=== PATIENT | male | born 1940 | race Caucasian/White ===

== ENCOUNTER 2017-05-29 05:16 | Emergency (ER) | payer MEDICARE ==
[2017-05-29 05:26] LABS: Glucose,Whole Blood 102 mg/dL (75-99)
[2017-05-29 05:30] VITALS: RESP 16
--- NOTE | 2017-05-29 06:04 | ED ---
Neuro HPI - General Chief Complaint: Neuro Symptoms/Deficit Stated Complaint: poss stroke Time Seen by Provider: 05/29/17 05:27 Source: patient, family Mode of arrival: ambulatory Limitations: no limitations - History of Present Illness Is the patient presenting with stroke symptoms?: Yes Last Known Well Date: 05/28/17 Last Known Well Time: 23:45 -: hour(s) Initial Comments: This patient is a 77-year-old man who presents to be evaluated after he had episodes of some expressive aphasia. About 11:30 last night, the patient was speaking with his and he was having difficulty finding certain words to express his thoughts. There was no reported dysarthria. He woke this morning and had another episode and so presents here to be evaluated. Patient denied other symptoms, including no weakness or numbness of the extremities. No difficulty with swallowing. No slurring of the speech. Location: speech History of same: No Place: home Severity: mild Quality: other Improves With: none Worsens With: none On Anticoagulants: No Context: sudden onset Associated Symptoms: denies other symptoms - Related Data Home Medications: Home Medications Medication Instructions Recorded Confirmed Aspirin 81 mg PO DAILY 05/29/17 05/29/17 Atenolol 25 mg PO DAILY 05/29/17 05/29/17 Carbidopa-Levodopa ER 50-200Mg 1 tab BID 05/29/17 05/29/17 [Sinemet CR 50-200 mg] Dutasteride 0.5 mg PO DAILY 05/29/17 05/29/17 Losartan [Cozaar] 25 mg PO DAILY 05/29/17 05/29/17 Simvastatin 40 mg PO DAILY 05/29/17 05/29/17 Allergies/Adverse Reactions: Allergies Allergy/AdvReac Type Severity Reaction Status Date / Time No Known Allergies Allergy Verified 05/29/17 05:30 Review of Systems ROS Statement: Those systems with pertinent positive or pertinent negative responses have been documented in the HPI. ROS Other: All systems not noted in ROS Statement are negative. Constitutional: Denies: fever, chills Eyes: Denies: vision change ENT: Denies: hearing loss Respiratory: Denies: cough, dyspnea Cardiovascular: Denies: chest pain, palpitations, dyspnea on exertion Gastrointestinal: Denies: abdominal pain, nausea, vomiting Genitourinary: Denies: dysuria, hematuria Musculoskeletal: Denies: back pain Skin: Denies: rash Neurological: Reports: other (mild expressive aphasia). Denies: headache, weakness, numbness, paresthesias, confusion General Exam Limitations: no limitations General appearance: alert, in no apparent distress Head exam: Present: atraumatic, normocephalic, normal inspection Eye exam: Present: normal appearance, PERRL. Absent: scleral icterus, conjunctival injection ENT exam: Present: normal oropharynx Respiratory exam: Present: normal lung sounds bilaterally. Absent: respiratory distress, wheezes, rales, rhonchi, stridor Cardiovascular Exam: Present: regular rate, normal rhythm, normal heart sounds. Absent: systolic murmur, diastolic murmur, rubs, gallop GI/Abdominal exam: Present: soft. Absent: distended, tenderness, guarding, rebound, mass Extremities exam: Present: normal inspection, normal capillary refill. Absent: pedal edema, calf tenderness Back exam: Present: normal inspection. Absent: CVA tenderness (R), CVA tenderness (L) Neurological exam: Present: alert, oriented X3, CN II-XII intact. Absent: motor sensory deficit Skin exam: Present: warm, dry, intact, normal color. Absent: rash Stroke MDM - Lab Data Result diagrams: 05/29/17 05:24 05/29/17 05:24 Lab Results 05/29/17 05/29/17 05/29/17 Range/Units 05:24 05:24 05:24 WBC 7.9 (3.8-10.6) k/uL RBC 5.23 (4.30-5.90) m/uL Hgb 15.2 (13.0-17.5) gm/dL Hct 46.5 (39.0-53.0) % MCV 88.9 (80.0-100.0) fL MCH 29.0 (25.0-35.0) pg MCHC 32.6 (31.0-37.0) g/dL RDW 14.2 (11.5-15.5) % Plt Count 296 (150-450) k/uL Neutrophils % 66 % Lymphocytes % 20 % Monocytes % 7 % Eosinophils % 3 % Basophils % 1 % Neutrophils # 5.2 (1.3-7.7) k/uL Lymphocytes # 1.6 (1.0-4.8) k/uL Monocytes # 0.6 (0-1.0) k/uL Eosinophils # 0.2 (0-0.7) k/uL Basophils # 0.1 (0-0.2) k/uL PT (9.0-12.0) sec INR (<1.2) APTT (22.0-30.0) sec Sodium (137-145) mmol/L Potassium (3.5-5.1) mmol/L Chloride (98-107) mmol/L Carbon Dioxide (22-30) mmol/L Anion Gap mmol/L BUN (9-20) mg/dL Creatinine (0.66-1.25) mg/dL Est GFR (MDRD) Af Amer (>60 ml/min/1.73 sqM) Est GFR (MDRD) Non-Af (>60 ml/min/1.73 sqM) Glucose (74-99) mg/dL POC Glucose (mg/dL) 102 H (75-99) mg/dL POC Glu Flare Man ID Arft, Eduardo Calcium (8.4-10.2) mg/dL Total Bilirubin (0.2-1.3) mg/dL AST (17-59) U/L ALT (21-72) U/L Alkaline Phosphatase (38-126) U/L Total Creatine Kinase 38 L (55-170) U/L CK-MB (CK-2) 0.6 (0.0-2.4) ng/mL CK-MB (CK-2) Rel Index 1.6 Troponin I <0.012 (0.000-0.034) ng/mL Total Protein (6.3-8.2) g/dL Albumin (3.5-5.0) g/dL 05/29/17 05/29/17 Range/Units 05:24 05:24 WBC (3.8-10.6) k/uL RBC (4.30-5.90) m/uL Hgb (13.0-17.5) gm/dL Hct (39.0-53.0) % MCV (80.0-100.0) fL MCH (25.0-35.0) pg MCHC (31.0-37.0) g/dL RDW (11.5-15.5) % Plt Count (150-450) k/uL Neutrophils % % Lymphocytes % % Monocytes % % Eosinophils % % Basophils % % Neutrophils # (1.3-7.7) k/uL Lymphocytes # (1.0-4.8) k/uL Monocytes # (0-1.0) k/uL Eosinophils # (0-0.7) k/uL Basophils # (0-0.2) k/uL PT 9.8 (9.0-12.0) sec INR 1.0 (<1.2) APTT 25.1 (22.0-30.0) sec Sodium 141 (137-145) mmol/L Potassium 4.4 (3.5-5.1) mmol/L Chloride 102 (98-107) mmol/L Carbon Dioxide 30 (22-30) mmol/L Anion Gap 9 mmol/L BUN 30 H (9-20) mg/dL Creatinine 0.90 (0.66-1.25) mg/dL Est GFR (MDRD) Af Amer >60 (>60 ml/min/1.73 sqM) Est GFR (MDRD) Non-Af >60 (>60 ml/min/1.73 sqM) Glucose 108 H (74-99) mg/dL POC Glucose (mg/dL) (75-99) mg/dL POC Glu Flare Man ID Calcium 9.6 (8.4-10.2) mg/dL Total Bilirubin 1.3 (0.2-1.3) mg/dL AST 24 (17-59) U/L ALT 18 L (21-72) U/L Alkaline Phosphatase 78 (38-126) U/L Total Creatine Kinase (55-170) U/L CK-MB (CK-2) (0.0-2.4) ng/mL CK-MB (CK-2) Rel Index Troponin I (0.000-0.034) ng/mL Total Protein 6.7 (6.3-8.2) g/dL Albumin 4.1 (3.5-5.0) g/dL - Medical Decision Making This patient is 77-year-old man who presents to be evaluated for 2 episodes of expressive aphasia. The patient is at his baseline. I discussed results with the patient and offered admission, but they state that as patient's neurologist is not in the hospital, they will follow with him this morning, returning if there is any difficulty or any new symptoms. - EKG Data -: EKG Interpreted by Me EKG shows normal: sinus rhythm, axis (Normal), intervals (Normal), QRS complexes (Normal), ST-T waves (Normal) Rate: normal (Rate 73 bpm) Interpretation: normal EKG Past Medical History Past Medical History: Hyperlipidemia, Hypertension, Neurologic Disorder Additional Past Medical History / Comment(s): Parkinsons History of Any Multi-Drug Resistant Organisms: None Reported Past Surgical History: Cholecystectomy, Heart Catheterization, Heart Catheterization With Stent Past Psychological History: No Psychological Hx Reported Smoking Status: Never smoker Past Alcohol Use History: None Reported Past Drug Use History: None Reported Course Vital Signs 05/29/17 05/29/17 05:25 06:25 Temperature 97.9 F Pulse Rate 75 67 Respiratory 16 16 Rate Blood Pressure 143/78 148/86 O2 Sat by Pulse 99 100 Oximetry Disposition Clinical Impression: Expressive aphasia Disposition: HOME SELF-CARE Condition: Fair Instructions: Transient Ischemic Attack (ED) Referrals: Kingston Hoover MD [Primary Care Provider] - 1-2 days
[2017-05-29 06:19] LABS: Basophils # (A) 0.1 k/uL (0-0.2); Basophils % (A) 1 %; CH 29.9; CHCM 33.8; Eosinophils # (A) 0.2 k/uL (0-0.7); Eosinophils % (A) 3 %; HCT 46.5 % (39.0-53.0); HGB 15.2 gm/dL (13.0-17.5); Luc % (Auto) 3; Lymphocytes # (A) 1.6 k/uL (1.0-4.8); Lymphocytes % (A) 20 %; MCHC 32.6 g/dL (31.0-37.0); MCV 88.9 fL (80.0-100.0); Monocytes # (A) 0.6 k/uL (0-1.0); Monocytes % (A) 7 %; Neutrophils # (A) 5.2 k/uL (1.3-7.7); Neutrophils % (A) 66 %; RBC 5.23 m/uL (4.30-5.90); RDW 14.2 % (11.5-15.5); WBC 7.9 k/uL (3.8-10.6); WBC (Perox) 7.73
[2017-05-29 06:23] LABS: Partial Thromboplastin Time 25.1 sec (22.0-30.0); Prothrombin Time 9.8 sec (9.0-12.0)
[2017-05-29 06:36] LABS: ALT 18 U/L (21-72); AST 24 U/L (17-59); Alkaline Phosphatase 78 U/L (38-126); Anion Gap 9 mmol/L; Blood Urea Nitrogen 30 mg/dL (9-20); Calcium 9.6 mg/dL (8.4-10.2); Carbon Dioxide 30 mmol/L (22-30); Chloride 102 mmol/L (98-107); Glucose 108 mg/dL (74-99); Non-African American GFR(MDRD) >60 (>60 ml/min/1.73 sqM); Potassium 4.4 mmol/L (3.5-5.1); Sodium 141 mmol/L (137-145); Total Bilirubin 1.3 mg/dL (0.2-1.3); Total Protein 6.7 g/dL (6.3-8.2)
[2017-05-29 06:40] LABS: Creatine Kinase 38 U/L (55-170)
--- NOTE | 2017-05-29 06:45 | CT ---
EXAM: CT Head Without Intravenous Contrast. CLINICAL HISTORY: Reason: Neuro Deficits TECHNIQUE: Axial computed tomography images of the head/brain without intravenous contrast. CTDI is 57.4 mGy and DLP is 1014 mGy-cm. This CT exam was performed using one or more of the following dose reduction techniques: automated exposure control, adjustment of the mA and/or kV according to patient size, and/or use of iterative reconstruction technique. COMPARISON: No relevant prior studies available. FINDINGS: Brain: Unremarkable. No hemorrhage. No significant white matter disease. No edema. Ventricles: Unremarkable. No ventriculomegaly. Bones: No acute fracture. Sinuses: Unremarkable as visualized. No acute sinusitis. Mastoid air cells: Unremarkable as visualized. No mastoid effusion. IMPRESSION: No acute intracranial abnormality.
--- NOTE | 2017-05-29 06:49 | XR ---
EXAM: XR Chest, 1 View. CLINICAL HISTORY: Reason: altered mental status TECHNIQUE: Frontal view of the chest. COMPARISON: No relevant prior studies available. FINDINGS: Lungs: Unremarkable. No consolidation. Pleural spaces: Unremarkable. No pneumothorax. Heart: Unremarkable. No cardiomegaly. Mediastinum: Unremarkable. Bones: Unremarkable. No acute fracture. IMPRESSION: No acute findings in the chest.
[2017-05-29 06:53] LABS: Creatine Kinase MB 0.6 ng/mL (0.0-2.4); Troponin I <0.012 ng/mL (0.000-0.034)
[2017-05-29 07:30] VITALS: BP 155/90; PULSE 65; TEMP 98.1
== END 2017-05-29 07:30 | disposition home or self-care (01) ==
LOC: EC 05:16
DX: R47.01 Aphasia (principal); E78.5 Hyperlipidemia, unspecified; I10 Essential (primary) hypertension; G20 Parkinson's disease; Z79.82 Long term (current) use of aspirin; Z79.899 Other long term (current) drug therapy
CPT/HCPCS: 36415; 70450; 71010; 80053; 82550; 82553; 84484; 85025; 85610; 85730; 93005; 99284

== ENCOUNTER → 2018-03-17 | Outpatient (CLI) | payer MEDICARE | END | disposition home or self-care (01) | LOC: LABWHC1 09:06 | PROVIDERS: ATTEND Urology | DX: C61 Malignant neoplasm of prostate (principal) | CPT/HCPCS: 36415; 84153 ==

== ENCOUNTER 2020-06-17 11:39 | Inpatient (IN) | payer MEDICARE ==
[2020-06-17] MEDS ORDERED: SODIUM CHLORIDE 0.9% 1,000 ML IV STA (12:23)
[2020-06-17 13:02] LABS: Appearance,Urine Cloudy (Clear); Bacteria,Urine Rare /hpf; Bilirubin,Urine Negative (Negative); Blood,Urine Moderate (Negative); Color,Urine Yellow; Glucose,Urine (UA) Negative (Negative); Hyaline Casts,Urine 18 /lpf (0-2); Ketones,Urine Negative (Negative); Leukocyte Esterase,Urine Small (Negative); Mucus,Urine Occasional /hpf; Nitrite,Urine Negative (Negative); PH, Urine 7.5 (5.0-8.0); Protein,Urine 1+ (Negative); RBC,Urine >182 /hpf (0-5); Specific Gravity,Urine 1.024 (1.001-1.035); Squamous Epithelial Cell,Urine 3 /hpf (0-4); WBC,Urine 19 /hpf (0-5)
[2020-06-17 13:08] LABS: ALT 8 U/L (4-49); AST 33 U/L (17-59); African American GFR (CKD) >90 (>60 ml/min/1.73 sqM); Albumin 3.9 g/dL (3.5-5.0); Alkaline Phosphatase 77 U/L (38-126); Anion Gap 4 mmol/L; Blood Urea Nitrogen 35 mg/dL (9-20); Calcium 9.4 mg/dL (8.4-10.2); Carbon Dioxide 35 mmol/L (22-30); Chloride 105 mmol/L (98-107); Glucose 99 mg/dL (74-99); Magnesium 2.2 mg/dL (1.6-2.3); Non-African American GFR(CKD) >90 (>60 ml/min/1.73 sqM); Potassium 3.9 mmol/L (3.5-5.1); Sodium 144 mmol/L (137-145); Total Bilirubin 1.5 mg/dL (0.2-1.3); Total Protein 6.3 g/dL (6.3-8.2)
[2020-06-17 13:11] LABS: Partial Thromboplastin Time 23.8 sec (22.0-30.0); Prothrombin Time 10.3 sec (9.0-12.0)
[2020-06-17 13:12] LABS: Basophils % (A) 1 %; Eosinophils % (A) 1 %; HCT 40.1 % (39.0-53.0); HGB 13.5 gm/dL (13.0-17.5); Lymphocytes # (A) 0.7 k/uL (1.0-4.8); Lymphocytes % (A) 11 %; MCH 30.7 pg (25.0-35.0); MCHC 33.5 g/dL (31.0-37.0); MCV 91.5 fL (80.0-100.0); Mean Platelet Volume 6.9; Monocytes # (A) 0.4 k/uL (0-1.0); Monocytes % (A) 6 %; Neutrophils # (A) 5.1 k/uL (1.3-7.7); Neutrophils % (A) 80 %; Platelet Count 213 k/uL (150-450); RBC 4.39 m/uL (4.30-5.90); WBC 6.4 k/uL (3.8-10.6)
--- NOTE | 2020-06-17 13:31 | ED ---
General Adult HPI - General Source: EMS, RN notes reviewed Mode of arrival: EMS Limitations: altered mental status, physical limitation <Shan Ramirez - Last Filed: 06/17/20 14:39> <Kwaku Loyola - Last Filed: 06/24/20 07:16> - General Chief complaint: Weakness Stated complaint: Fall Time Seen by Provider: 06/17/20 11:59 - History of Present Illness Initial comments: 80-year-old male with a past medical history Parkinson's disease diagnosed 5 years ago, hyperlipidemia, hypertension presents to the emergency room for a chief complaint of weakness. Patient has a history of Parkinson's and does have weakness in general. However over the past few days reports that she is unable to care for him. States that he is falling and she is not able to get him up off the floor. States that she needs more help with him and thinks he may need some rehabilitation. He has not had any fevers.Patient has no other complaints at this time including shortness of breath, chest pain, abdominal pain, nausea or vomiting, headache, or visual changes. (Shan Ramirez) - Related Data Home Medications Medication Instructions Recorded Confirmed Aspirin 81 mg PO DAILY 05/29/17 06/17/20 Carbidopa-Levodopa ER 50-200Mg 1 tab PO BID 05/29/17 06/17/20 [Sinemet CR 50-200 mg] Dutasteride 0.5 mg PO HS 05/29/17 06/17/20 Losartan [Cozaar] 25 mg PO DAILY@1200 05/29/17 06/17/20 atenoloL [Atenolol] 25 mg PO HS 05/29/17 06/17/20 Docusate [Colace] 100 mg PO DAILY@1200 06/17/20 06/17/20 Donepezil [Aricept] 10 mg PO HS 06/17/20 06/17/20 QUEtiapine [SEROquel] 25 mg PO HS 06/17/20 06/17/20 Rosuvastatin [Crestor] 5 mg PO Q48H 06/17/20 06/17/20 Previous Rx's Medication Instructions Recorded QUEtiapine [SEROquel] 25 mg PO DAILY PRN tab 06/22/20 Allergies Allergy/AdvReac Type Severity Reaction Status Date / Time No Known Allergies Allergy Verified 06/17/20 13:32 Review of Systems ROS Other: All systems not noted in ROS Statement are negative. <Shan Ramirez - Last Filed: 06/17/20 14:39> ROS Other: All systems not noted in ROS Statement are negative. <NirKwaku - Last Filed: 06/24/20 07:16> ROS Statement: Those systems with pertinent positive or pertinent negative responses have been documented in the HPI. Past Medical History Past Medical History: Hyperlipidemia, Hypertension, Neurologic Disorder Additional Past Medical History / Comment(s): Parkinsons History of Any Multi-Drug Resistant Organisms: None Reported Past Surgical History: Cholecystectomy, Heart Catheterization, Heart Catheterization With Stent Past Psychological History: No Psychological Hx Reported Smoking Status: Never smoker Past Alcohol Use History: None Reported Past Drug Use History: None Reported <Shan Ramirez - Last Filed: 06/17/20 14:39> - Past Family History Mother History Unknown: Yes Family Medical History: No Reported History Additional Family Medical History / Comment(s): old age <Kwaku Loyola - Last Filed: 06/24/20 07:16> General Exam Limitations: altered mental status, physical limitation General appearance: alert, in no apparent distress Head exam: Present: atraumatic, normocephalic, normal inspection Eye exam: Present: normal appearance ENT exam: Present: normal exam, mucous membranes moist Neck exam: Present: normal inspection, full ROM. Absent: tenderness, meningismus, lymphadenopathy Respiratory exam: Present: normal lung sounds bilaterally. Absent: respiratory distress, wheezes, rales, rhonchi, stridor Cardiovascular Exam: Present: regular rate, normal rhythm GI/Abdominal exam: Present: soft, normal bowel sounds. Absent: distended, tenderness, guarding, rebound, rigid Extremities exam: Present: other (Tremors noted) Neurological exam: Present: alert <Shan Ramirez - Last Filed: 06/17/20 14:39> Course <Kwaku Loyola - Last Filed: 06/24/20 07:16> Vital Signs 06/17/20 06/17/20 06/17/20 11:49 14:56 15:24 Temperature 98.8 F 97.1 F L 98.4 F Pulse Rate 56 L 62 Pulse Rate [ 81 Left Brachial] Respiratory 22 16 18 Rate Blood Pressure 127/90 138/88 Blood Pressure 150/59 [Left Calf] O2 Sat by Pulse 96 97 96 Oximetry - Reevaluation(s) Reevaluation #1: 06/17/20 14:30 PA supervision: I did personally evaluate this patient he did present with complaints of decreased oral intake and inability to care for himself up. Is of a history of prostate cancer. Information is gathered from his as he does have dementia. Patient does have evidence of clinical dehydration. He is arousable. Heart and lungs are unremarkable on examination. He does have evidence of hematuria which does correlate with his prostate cancer. Patient will be admitted (Kwaku Loyola) Medical Decision Making - Lab Data Result diagrams: 06/17/20 12:38 06/17/20 12:38 <Shan Ramirez - Last Filed: 06/17/20 14:39> - Lab Data Result diagrams: 06/21/20 06:17 06/21/20 06:17 <Kwaku Loyola - Last Filed: 06/24/20 07:16> - Medical Decision Making CBC unremarkable. CMP does show evidence of dehydration. Patient was given fluids. He also has red blood cells in his urine with small leukocyte esterase and rare bacteria.However states the patient has prostate cancer and this is normal for him. I did discuss this case with Dr. Kiko Keenan's nurse practitioner. I discussed that would like short-term rehabilitation and then home health and he she does not want patient admitted to a long-term care facility. He does accept this patient (Shan Ramirez) - Lab Data Lab Results 06/17/20 06/17/20 06/17/20 Range/Units 12:38 12:38 12:38 WBC 6.4 (3.8-10.6) k/uL RBC 4.39 (4.30-5.90) m/uL Hgb 13.5 (13.0-17.5) gm/dL Hct 40.1 (39.0-53.0) % MCV 91.5 (80.0-100.0) fL MCH 30.7 (25.0-35.0) pg MCHC 33.5 (31.0-37.0) g/dL RDW 13.0 (11.5-15.5) % Plt Count 213 (150-450) k/uL MPV 6.9 Neutrophils % 80 % Lymphocytes % 11 % Monocytes % 6 % Eosinophils % 1 % Basophils % 1 % Neutrophils # 5.1 (1.3-7.7) k/uL Lymphocytes # 0.7 L (1.0-4.8) k/uL Monocytes # 0.4 (0-1.0) k/uL Eosinophils # 0.0 (0-0.7) k/uL Basophils # 0.0 (0-0.2) k/uL PT 10.3 (9.0-12.0) sec INR 1.0 (<1.2) APTT 23.8 (22.0-30.0) sec Sodium (137-145) mmol/L Potassium (3.5-5.1) mmol/L Chloride (98-107) mmol/L Carbon Dioxide (22-30) mmol/L Anion Gap mmol/L BUN (9-20) mg/dL Creatinine (0.66-1.25) mg/dL Est GFR (CKD-EPI)AfAm (>60 ml/min/1.73 sqM) Est GFR (CKD-EPI)NonAf (>60 ml/min/1.73 sqM) Glucose (74-99) mg/dL Plasma Lactic Acid Zenon (0.7-2.0) mmol/L Calcium (8.4-10.2) mg/dL Magnesium (1.6-2.3) mg/dL Total Bilirubin (0.2-1.3) mg/dL AST (17-59) U/L ALT (4-49) U/L Alkaline Phosphatase (38-126) U/L Troponin I (0.000-0.034) ng/mL Total Protein (6.3-8.2) g/dL Albumin (3.5-5.0) g/dL Urine Color Yellow Urine Appearance Cloudy (Clear) Urine pH 7.5 (5.0-8.0) Ur Specific Tibbie 1.024 (1.001-1.035) Urine Protein 1+ H (Negative) Urine Glucose (UA) Negative (Negative) Urine Ketones Negative (Negative) Urine Blood Moderate H (Negative) Urine Nitrite Negative (Negative) Urine Bilirubin Negative (Negative) Urine Urobilinogen 2.0 (<2.0) mg/dL Ur Leukocyte Esterase Small H (Negative) Urine RBC >182 H (0-5) /hpf Urine WBC 19 H (0-5) /hpf Urine WBC Clumps Occasional H (None) /hpf Ur Squamous Epith Cells 3 (0-4) /hpf Urine Bacteria Rare H (None) /hpf Hyaline Casts 18 H (0-2) /lpf Urine Mucus Occasional H (None) /hpf Coronavirus (PCR) (Not Detectd) 06/17/20 06/17/20 06/17/20 Range/Units 12:38 12:38 12:38 WBC (3.8-10.6) k/uL RBC (4.30-5.90) m/uL Hgb (13.0-17.5) gm/dL Hct (39.0-53.0) % MCV (80.0-100.0) fL MCH (25.0-35.0) pg MCHC (31.0-37.0) g/dL RDW (11.5-15.5) % Plt Count (150-450) k/uL MPV Neutrophils % % Lymphocytes % % Monocytes % % Eosinophils % % Basophils % % Neutrophils # (1.3-7.7) k/uL Lymphocytes # (1.0-4.8) k/uL Monocytes # (0-1.0) k/uL Eosinophils # (0-0.7) k/uL Basophils # (0-0.2) k/uL PT (9.0-12.0) sec INR (<1.2) APTT (22.0-30.0) sec Sodium 144 (137-145) mmol/L Potassium 3.9 (3.5-5.1) mmol/L Chloride 105 (98-107) mmol/L Carbon Dioxide 35 H (22-30) mmol/L Anion Gap 4 mmol/L BUN 35 H (9-20) mg/dL Creatinine 0.69 (0.66-1.25) mg/dL Est GFR (CKD-EPI)AfAm >90 (>60 ml/min/1.73 sqM) Est GFR (CKD-EPI)NonAf >90 (>60 ml/min/1.73 sqM) Glucose 99 (74-99) mg/dL Plasma Lactic Acid Zenon 0.9 (0.7-2.0) mmol/L Calcium 9.4 (8.4-10.2) mg/dL Magnesium 2.2 (1.6-2.3) mg/dL Total Bilirubin 1.5 H (0.2-1.3) mg/dL AST 33 (17-59) U/L ALT 8 (4-49) U/L Alkaline Phosphatase 77 (38-126) U/L Troponin I <0.012 (0.000-0.034) ng/mL Total Protein 6.3 (6.3-8.2) g/dL Albumin 3.9 (3.5-5.0) g/dL Urine Color Urine Appearance (Clear) Urine pH (5.0-8.0) Ur Specific Tibbie (1.001-1.035) Urine Protein (Negative) Urine Glucose (UA) (Negative) Urine Ketones (Negative) Urine Blood (Negative) Urine Nitrite (Negative) Urine Bilirubin (Negative) Urine Urobilinogen (<2.0) mg/dL Ur Leukocyte Esterase (Negative) Urine RBC (0-5) /hpf Urine WBC (0-5) /hpf Urine WBC Clumps (None) /hpf Ur Squamous Epith Cells (0-4) /hpf Urine Bacteria (None) /hpf Hyaline Casts (0-2) /lpf Urine Mucus (None) /hpf Coronavirus (PCR) (Not Detectd) 06/17/20 Range/Units 12:38 WBC (3.8-10.6) k/uL RBC (4.30-5.90) m/uL Hgb (13.0-17.5) gm/dL Hct (39.0-53.0) % MCV (80.0-100.0) fL MCH (25.0-35.0) pg MCHC (31.0-37.0) g/dL RDW (11.5-15.5) % Plt Count (150-450) k/uL MPV Neutrophils % % Lymphocytes % % Monocytes % % Eosinophils % % Basophils % % Neutrophils # (1.3-7.7) k/uL Lymphocytes # (1.0-4.8) k/uL Monocytes # (0-1.0) k/uL Eosinophils # (0-0.7) k/uL Basophils # (0-0.2) k/uL PT (9.0-12.0) sec INR (<1.2) APTT (22.0-30.0) sec Sodium (137-145) mmol/L Potassium (3.5-5.1) mmol/L Chloride (98-107) mmol/L Carbon Dioxide (22-30) mmol/L Anion Gap mmol/L BUN (9-20) mg/dL Creatinine (0.66-1.25) mg/dL Est GFR (CKD-EPI)AfAm (>60 ml/min/1.73 sqM) Est GFR (CKD-EPI)NonAf (>60 ml/min/1.73 sqM) Glucose (74-99) mg/dL Plasma Lactic Acid Zenon (0.7-2.0) mmol/L Calcium (8.4-10.2) mg/dL Magnesium (1.6-2.3) mg/dL Total Bilirubin (0.2-1.3) mg/dL AST (17-59) U/L ALT (4-49) U/L Alkaline Phosphatase (38-126) U/L Troponin I (0.000-0.034) ng/mL Total Protein (6.3-8.2) g/dL Albumin (3.5-5.0) g/dL Urine Color Urine Appearance (Clear) Urine pH (5.0-8.0) Ur Specific Tibbie (1.001-1.035) Urine Protein (Negative) Urine Glucose (UA) (Negative) Urine Ketones (Negative) Urine Blood (Negative) Urine Nitrite (Negative) Urine Bilirubin (Negative) Urine Urobilinogen (<2.0) mg/dL Ur Leukocyte Esterase (Negative) Urine RBC (0-5) /hpf Urine WBC (0-5) /hpf Urine WBC Clumps (None) /hpf Ur Squamous Epith Cells (0-4) /hpf Urine Bacteria (None) /hpf Hyaline Casts (0-2) /lpf Urine Mucus (None) /hpf Coronavirus (PCR) Not Detected (Not Detectd) Disposition Time of Disposition: 14:40 <Shan Ramirez - Last Filed: 06/17/20 14:39> <Kwaku Loyola - Last Filed: 06/24/20 07:16> Clinical Impression: Weakness, Dementia, Dehydration, Failure to thrive Disposition: ADMITTED IP TO THIS [facility] Condition: Stable
--- NOTE | 2020-06-17 13:38 | XR ---
EXAMINATION TYPE: XR chest 2V DATE OF EXAM: 06/17/2020 COMPARISON: 05/29/2017 INDICATION: Weakness history of dementia TECHNIQUE: Frontal and lateral views of the chest are obtained. FINDINGS: The heart size is normal. The pulmonary vasculature is normal. The lungs are clear. There is some hyperinflation present likely on the basis of emphysematous eaton e. No suspicious infiltrates are evident. IMPRESSION: 1. No acute pulmonary process.
[2020-06-17] MEDS ORDERED: NALOXONE 0.4 MG/ML 1 ML VIAL IV PRN (14:41)
[2020-06-17] MEDS ORDERED: NON FORMULARY DRUG (Rosuvastatin 10 MG Tablet) PO SCH (14:45)
[2020-06-17] MEDS: SODIUM CHLORIDE 0.9% 1,000 ML IV SCH (15:13)
[2020-06-17] MEDS ORDERED: LORazepam 2 MG/ML INJ ONE (15:55)
[2020-06-17] MEDS: LORazepam 2 MG/ML INJ IV PRN ×2 (16:29→18:11)
[2020-06-17] MEDS ORDERED: LORazepam 2 MG/ML INJ IV PRN (16:34)
--- NOTE | 2020-06-17 19:38 | P.HPIM ---
History of Present Illness H&P Date: 06/17/20 Chief Complaint: Weakness failure to thrive This well known sitting 10-year-old male patient was brought to the emergency department for the chief complaint of weakness and startling. He has a history of Parkinson's disease diagnosed approximately 5 years ago in the last 2 years he also developed Parkinsonian dementia and is taking care of at home by his . Yesterday 06/16/2020, his states that he had a fall without sustaining major injury she denies he hit his head hit his ribs or complains of pain. Last evening, he got on the floor and could not get back up. 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 She has noticed flailing increasing since yesterday she states he did eat yesterday and had no other behaviors she denies any fever or any diarrhea she does state he has a history of prostate cancer monitored by urology with times of blood found in his disposable brief but no more than normal or change in order of urine. His feels that he may need a workup to determine the weakness change in behavior and possibly benefit from short-term rehabilitation in a care home setting. She is aware that with the Parkinson's and dementia and weakness will continue but does feel that even with a small amount of physical therapy this may help with the management of his care at home for now. Due to the change in behavior and weakness, UA culture was sent per emergency room, CT without contrast of head ordered to rule out acute n eurological cause. Review of Systems Constitutional: Reports fatigue, Reports weakness, Reports weight loss Genitourinary: Reports incontinence Musculoskeletal: Reports frequent falls, Reports gait dysfunction, Reports muscle weakness Integumentary: Reports wounds (Coccyx) Neurological: Reports gait dysfunction, Reports memory loss, Reports tremors, Reports weakness Psychiatric: Reports confusion, Reports memory loss Past Medical History Past Medical History: Hyperlipidemia, Hypertension, Neurologic Disorder Additional Past Medical History / Comment(s): Parkinsons History of Any Multi-Drug Resistant Organisms: None Reported Past Surgical History: Cholecystectomy, Heart Catheterization, Heart Catheterization With Stent Past Anesthesia/Blood Transfusion Reactions: No Reported Reaction Date of Last Stent Placement:: unknown Past Psychological History: No Psychological Hx Reported Smoking Status: Never smoker Past Alcohol Use History: None Reported Past Drug Use History: None Reported - Past Family History Mother History Unknown: Yes Family Medical History: No Reported History Additional Family Medical History / Comment(s): old age Medications and Allergies Home Medications Medication Instructions Recorded Confirmed Type Aspirin 81 mg PO DAILY 05/29/17 06/17/20 History Carbidopa-Levodopa ER 50-200Mg 1 tab PO BID 05/29/17 06/17/20 History [Sinemet CR 50-200 mg] Dutasteride 0.5 mg PO HS 05/29/17 06/17/20 History Losartan [Cozaar] 25 mg PO DAILY@1200 05/29/17 06/17/20 History atenoloL [Atenolol] 25 mg PO HS 05/29/17 06/17/20 History Docusate [Colace] 100 mg PO DAILY@1200 06/17/20 06/17/20 History Donepezil [Aricept] 10 mg PO HS 06/17/20 06/17/20 History QUEtiapine [SEROquel] 25 mg PO HS 06/17/20 06/17/20 History Rosuvastatin [Crestor] 5 mg PO Q48H 06/17/20 06/17/20 History Allergies Allergy/AdvReac Type Severity Reaction Status Date / Time No Known Allergies Allergy Verified 06/17/20 13:32 Physical Exam Vitals: Vital Signs Temp Pulse Pulse Resp BP BP Pulse Ox 06/17/20 16:35 16 06/17/20 16:31 97.1 F L 79 16 150/59 96 06/17/20 15:24 98.4 F 62 18 138/88 96 06/17/20 14:56 97.1 F L 81 16 150/59 97 06/17/20 11:49 98.8 F 56 L 22 127/90 96 Intake and Output 06/17/20 06/17/20 06/17/20 06:59 14:59 22:59 Other: # Voids 1 Weight 61.235 kg - Constitutional General appearance: mild distress, thin - Neck Thyroid: bilateral: normal size - Respiratory Respiratory: bilateral: CTA, diminished - Cardiovascular Rhythm: regular - Gastrointestinal General gastrointestinal: normal bowel sounds, soft - Neurologic Neurologic: focal deficits - Musculoskeletal Musculoskeletal: generalized weakness Results CBC & Chem 7: 06/17/20 12:38 06/17/20 12:38 Labs: Abnormal Lab Results - Last 24 Hours (Table) 06/17/20 06/17/20 06/17/20 Range/Units 12:38 12:38 12:38 Lymphocytes # 0.7 L (1.0-4.8) k/uL Carbon Dioxide 35 H (22-30) mmol/L BUN 35 H (9-20) mg/dL Total Bilirubin 1.5 H (0.2-1.3) mg/dL Urine Protein 1+ H (Negative) Urine Blood Moderate H (Negative) Ur Leukocyte Esterase Small H (Negative) Urine RBC >182 H (0-5) /hpf Urine WBC 19 H (0-5) /hpf Urine WBC Clumps Occasional H (None) /hpf Urine Bacteria Rare H (None) /hpf Hyaline Casts 18 H (0-2) /lpf Urine Mucus Occasional H (None) /hpf Abdominal x-ray: report reviewed Thrombosis Risk Factor Assmnt - Choose All That Apply Any of the Below Risk Factors Present?: No Other Risk Factors: No Other congenital or acquired thrombophilia - If yes, enter type in comment: No Thrombosis Risk Factor Assessment Level: Very Low Risk Assessment and Plan Assessment: Weakness Gait dysfunction Parkinson's disease Parkinsonian dementia History of prostate cancer followed by urology History of hyperlipidemia History of hypertension Failure to thrive Stage II pressure wound coccyx (1) Weakness Narrative/Plan: Rule out cause for her weakness Physical therapy consider short-term rehabilitation at care home facility Current Visit: Yes Status: Acute Code(s): R53.1 - WEAKNESS SNOMED Code(s): 52206209 (2) Dementia Narrative/Plan: Neurology consult Current Visit: Yes Status: Acute Code(s): F03.90 - UNSPECIFIED DEMENTIA WITHOUT BEHAVIORAL DISTURBANCE SNOMED Code(s): 65503028 Plan: Continue medications as prescribed Neurology consult for recommendations and treatment plans Wound care consultation for recommendations of coccyx stage II pressure wound Continue PT OT consultation for evaluation and treatment Time with Patient: Greater than 30 (Discussed plan of care at the bedside with patient's regarding history and pertinent information discuss long-term care goals)
[2020-06-17] MEDS: DONEPEZIL 10 MG TAB PO SCH (20:00)
[2020-06-17] MEDS: CARBIDOPA-LEVODOPA ER 50-200MG 1 EACH TABLET.ER PO SCH (20:01)
[2020-06-17] MEDS: atenoloL 25 MG TAB PO SCH (20:07)
[2020-06-17] MEDS: ATORVASTATIN 10 MG TAB PO SCH (20:07)
[2020-06-17] MEDS: FINASTERIDE 5 MG TAB PO SCH (20:08)
[2020-06-17] MEDS: QUEtiapine 25 MG TAB PO SCH (20:08)
[2020-06-18] MEDS: SODIUM CHLORIDE 0.9% 1,000 ML IV SCH ×2 (04:20→11:49)
[2020-06-18 06:12] LABS: Basophils # (A) 0.1 k/uL (0-0.2); Basophils % (A) 1 %; Eosinophils # (A) 0.2 k/uL (0-0.7); Eosinophils % (A) 3 %; HCT 37.6 % (39.0-53.0); HGB 13.1 gm/dL (13.0-17.5); Lymphocytes # (A) 0.8 k/uL (1.0-4.8); Lymphocytes % (A) 14 %; MCH 32.1 pg (25.0-35.0); MCHC 34.9 g/dL (31.0-37.0); MCV 91.9 fL (80.0-100.0); Mean Platelet Volume 7.1; Monocytes # (A) 0.5 k/uL (0-1.0); Monocytes % (A) 9 %; Neutrophils # (A) 4.3 k/uL (1.3-7.7); Neutrophils % (A) 71 %; Platelet Count 188 k/uL (150-450); RBC 4.09 m/uL (4.30-5.90); RDW 12.5 % (11.5-15.5); WBC 6.1 k/uL (3.8-10.6)
[2020-06-18 06:21] LABS: ALT 11 U/L (4-49); AST 36 U/L (17-59); African American GFR (CKD) >90 (>60 ml/min/1.73 sqM); Albumin 3.5 g/dL (3.5-5.0); Albumin/Globulin Ratio 1.5; Alkaline Phosphatase 70 U/L (38-126); Anion Gap 4 mmol/L; Blood Urea Nitrogen 23 mg/dL (9-20); Calcium 8.8 mg/dL (8.4-10.2); Carbon Dioxide 29 mmol/L (22-30); Chloride 107 mmol/L (98-107); Globulin 2.3 g/dL; Glucose 70 mg/dL (74-99); Non-African American GFR(CKD) >90 (>60 ml/min/1.73 sqM); Sodium 140 mmol/L (137-145); Total Protein 5.8 g/dL (6.3-8.2)
--- NOTE | 2020-06-18 08:44 | CT ---
EXAMINATION TYPE: CT brain wo con DATE OF EXAM: 06/18/2020 COMPARISON: 05/29/2017 INDICATION: Altered mental status DLP: 1046.8 mGycm, Automated exposure control for dose reduction was used. CONTRAST: None CT of the brain is performed utilizing 3 mm thick sections through the posterior fossa and 3 mm thick sections through the remaining calvarium. Study is performed within 24 hours of arrival to the hosp [facility]. No abnormal hyperdensity is present to suggest an acute intracranial hemorrhage. No mass lesion is evident. No acute infarcts are evident. Ventricles and sulci are appropriate for the patient age. There is mild mucosal thickening within right ethmoid air cells. Remaining paranasal sinuses mastoid air cells within the [id number] are clear. IMPRESSIONS: 1. No suspicious acute intracranial process
--- NOTE | 2020-06-18 09:06 | P.PN ---
Subjective Progress Note Date: 06/18/20 Principal diagnosis: Weakness Gait dysfunction Parkinson's disease Parkinsonian dementia History of prostate cancer followed by urology History of hyperlipidemia History of hypertension Failure to thrive Stage II pressure wound coccyx This 80 male is resting comfortably in bed at this time, he does arouse to verbal command with light touch, he had his CT scan of his head this morning and results reviewed, he has neurology consult for altered mental status change as his behaviors are not at his baseline and he has a wound care consultation for a stage II pressure wound on his coccyx, he is in no acute distress and is not exhibiting behavioral disturbances at this time. Objective - Vital Signs Vital signs: Vital Signs Temp 97.5 F L 06/18/20 07:53 Pulse 59 L 06/18/20 07:53 Resp 20 06/18/20 07:53 BP 142/69 06/18/20 07:53 Pulse Ox 96 06/18/20 07:53 Intake & Output 06/17/20 06/18/20 06/18/20 18:59 06:59 18:59 Weight 61.235 kg Other: # Voids 1 1 - Constitutional General appearance: Present: no acute distress, thin - Cardiovascular Rhythm: regular - Gastrointestinal General gastrointestinal: Present: normal bowel sounds - Neurologic Neurologic: Present: focal deficits - Musculoskeletal Musculoskeletal: Present: generalized weakness - Labs CBC & Chem 7: 06/18/20 06:00 06/18/20 06:00 Labs: Abnormal Lab Results - Last 24 Hours (Table) 06/17/20 06/17/20 06/17/20 Range/Units 12:38 12:38 12:38 RBC (4.30-5.90) m/uL Hct (39.0-53.0) % Lymphocytes # 0.7 L (1.0-4.8) k/uL Carbon Dioxide 35 H (22-30) mmol/L BUN 35 H (9-20) mg/dL Creatinine (0.66-1.25) mg/dL Glucose (74-99) mg/dL Total Bilirubin 1.5 H (0.2-1.3) mg/dL Total Protein (6.3-8.2) g/dL Urine Protein 1+ H (Negative) Urine Blood Moderate H (Negative) Ur Leukocyte Esterase Small H (Negative) Urine RBC >182 H (0-5) /hpf Urine WBC 19 H (0-5) /hpf Urine WBC Clumps Occasional H (None) /hpf Urine Bacteria Rare H (None) /hpf Hyaline Casts 18 H (0-2) /lpf Urine Mucus Occasional H (None) /hpf 06/18/20 06/18/20 Range/Units 06:00 06:00 RBC 4.09 L (4.30-5.90) m/uL Hct 37.6 L (39.0-53.0) % Lymphocytes # 0.8 L (1.0-4.8) k/uL Carbon Dioxide (22-30) mmol/L BUN 23 H (9-20) mg/dL Creatinine 0.55 L (0.66-1.25) mg/dL Glucose 70 L (74-99) mg/dL Total Bilirubin 2.0 H (0.2-1.3) mg/dL Total Protein 5.8 L (6.3-8.2) g/dL Urine Protein (Negative) Urine Blood (Negative) Ur Leukocyte Esterase (Negative) Urine RBC (0-5) /hpf Urine WBC (0-5) /hpf Urine WBC Clumps (None) /hpf Urine Bacteria (None) /hpf Hyaline Casts (0-2) /lpf Urine Mucus (None) /hpf Microbiology - Last 24 Hours (Table) 06/17/20 12:38 Urine Culture - Preliminary Urine,Voided - Imaging and Cardiology CT Scan - head: report reviewed Assessment and Plan Assessment: Weakness Gait dysfunction Parkinson's disease Parkinsonian dementia History of prostate cancer followed by urology History of hyperlipidemia History of hypertension Failure to thrive Stage II pressure wound coccyx (1) Weakness Narrative/Plan: Rule out cause for her weakness Physical therapy consider short-term rehabilitation at intermediate facility Current Visit: Yes Status: Acute Code(s): R53.1 - WEAKNESS SNOMED Code(s): 17517699 (2) Dementia Narrative/Plan: Neurology consult Current Visit: Yes Status: Acute Code(s): F03.90 - UNSPECIFIED DEMENTIA WITHOUT BEHAVIORAL DISTURBANCE SNOMED Code(s): 39968778 Plan: Continue medications as prescribed Continue Neurology consult for recommendations and treatment plans Continue Wound care consultation for recommendations of coccyx stage II pressure wound Continue PT OT consultation for evaluation and treatment
[2020-06-18] MEDS: ASPIRIN 81 MG PO SCH (09:22)
[2020-06-18] MEDS: CARBIDOPA-LEVODOPA ER 50-200MG 1 EACH TABLET.ER PO SCH ×2 (09:23→19:44)
--- NOTE | 2020-06-18 10:42 | P.CONS ---
History of Present Illness - Reason for Consult Consult date: 06/18/20 wound care - History of Present Illness This is a 80-year-old gentleman who is being seen by the wound care center for a nonhealing ulceration to the left gluteus. Patient is unable to answer questions due to mental status. He is alert to self. Information was obtained from nurse and chart. patient lives at home with his . History of hyperlipidemia, hypertension, dementia, and Parkinson's. Review of Systems ROS unobtainable: due to mental status Past Medical History Past Medical History: Hyperlipidemia, Hypertension, Neurologic Disorder Additional Past Medical History / Comment(s): Parkinsons History of Any Multi-Drug Resistant Organisms: None Reported Past Surgical History: Cholecystectomy, Heart Catheterization, Heart Catheterization With Stent Past Anesthesia/Blood Transfusion Reactions: No Reported Reaction Date of Last Stent Placement:: unknown Past Psychological History: No Psychological Hx Reported Smoking Status: Never smoker Past Alcohol Use History: None Reported Past Drug Use History: None Reported - Past Family History Mother History Unknown: Yes Family Medical History: No Reported History Additional Family Medical History / Comment(s): old age Medications and Allergies Home Medications Medication Instructions Recorded Confirmed Type Aspirin 81 mg PO DAILY 05/29/17 06/17/20 History Carbidopa-Levodopa ER 50-200Mg 1 tab PO BID 05/29/17 06/17/20 History [Sinemet CR 50-200 mg] Dutasteride 0.5 mg PO HS 05/29/17 06/17/20 History Losartan [Cozaar] 25 mg PO DAILY@1200 05/29/17 06/17/20 History atenoloL [Atenolol] 25 mg PO HS 05/29/17 06/17/20 History Docusate [Colace] 100 mg PO DAILY@1200 06/17/20 06/17/20 History Donepezil [Aricept] 10 mg PO HS 06/17/20 06/17/20 History QUEtiapine [SEROquel] 25 mg PO HS 06/17/20 06/17/20 History Rosuvastatin [Crestor] 5 mg PO Q48H 06/17/20 06/17/20 History Allergies Allergy/AdvReac Type Severity Reaction Status Date / Time No Known Allergies Allergy Verified 06/17/20 13:32 Physical Exam Vitals: Vital Signs Temp Pulse Pulse Pulse Resp BP BP 06/18/20 07:53 97.5 F L 59 L 20 142/69 06/18/20 02:20 97.6 F 51 L 18 130/51 06/17/20 20:00 98.0 F 56 L 18 107/77 06/17/20 16:35 16 06/17/20 16:31 97.1 F L 79 16 06/17/20 15:24 98.4 F 62 18 138/88 06/17/20 14:56 97.1 F L 81 16 06/17/20 11:49 98.8 F 56 L 22 127/90 BP Pulse Ox 06/18/20 07:53 96 06/18/20 02:20 97 06/17/20 20:00 96 06/17/20 16:35 06/17/20 16:31 150/59 96 06/17/20 15:24 96 06/17/20 14:56 150/59 97 06/17/20 11:49 96 Intake and Output 06/17/20 06/18/20 06/18/20 22:59 06:59 14:59 Other: # Voids 1 1 Physical exam: General Appearance: Alert, cooperative, no distress, appears stated age. Skin: full thickness stage II pressure ulcer left gluteus, with fat layer exposure, measuring approximately 0.6 x 1.5 x 0.2 wound edges are tested wound base, no tunneling or undermining noted, periwound shows excoriation and mace ration all other Skin color pale, texture, tugor decrease, no rashes or lesions. Neurologic: Alert oriented x3 Results CBC & Chem 7: 06/18/20 06:00 06/18/20 06:00 Labs: Abnormal Lab Results - Last 24 Hours (Table) 06/17/20 06/17/20 06/17/20 Range/Units 12:38 12:38 12:38 RBC (4.30-5.90) m/uL Hct (39.0-53.0) % Lymphocytes # 0.7 L (1.0-4.8) k/uL Carbon Dioxide 35 H (22-30) mmol/L BUN 35 H (9-20) mg/dL Creatinine (0.66-1.25) mg/dL Glucose (74-99) mg/dL Total Bilirubin 1.5 H (0.2-1.3) mg/dL Total Protein (6.3-8.2) g/dL Urine Protein 1+ H (Negative) Urine Blood Moderate H (Negative) Ur Leukocyte Esterase Small H (Negative) Urine RBC >182 H (0-5) /hpf Urine WBC 19 H (0-5) /hpf Urine WBC Clumps Occasional H (None) /hpf Urine Bacteria Rare H (None) /hpf Hyaline Casts 18 H (0-2) /lpf Urine Mucus Occasional H (None) /hpf 06/18/20 06/18/20 Range/Units 06:00 06:00 RBC 4.09 L (4.30-5.90) m/uL Hct 37.6 L (39.0-53.0) % Lymphocytes # 0.8 L (1.0-4.8) k/uL Carbon Dioxide (22-30) mmol/L BUN 23 H (9-20) mg/dL Creatinine 0.55 L (0.66-1.25) mg/dL Glucose 70 L (74-99) mg/dL Total Bilirubin 2.0 H (0.2-1.3) mg/dL Total Protein 5.8 L (6.3-8.2) g/dL Urine Protein (Negative) Urine Blood (Negative) Ur Leukocyte Esterase (Negative) Urine RBC (0-5) /hpf Urine WBC (0-5) /hpf Urine WBC Clumps (None) /hpf Urine Bacteria (None) /hpf Hyaline Casts (0-2) /lpf Urine Mucus (None) /hpf Microbiology - Last 24 Hours (Table) 06/17/20 12:38 Urine Culture - Preliminary Urine,Voided Assessment and Plan (1) Pressure ulcer of sacral region, stage 2 Current Visit: Yes Status: Acute Code(s): L89.152 - PRESSURE ULCER OF SACRAL REGION, STAGE 2 SNOMED Code(s): 820324982 Plan: apply honey alginate, saline moistened gauze, border foam. Change Monday. May use zinc barrier cream to that. Area to help with further skin breakdown. Consult nutrition, assess the surface of the rhythm for the appropriate surface. Utilize a mattress overlay. Turn patient every 2 hours. Patient may benefit from continued outpatient wound care. thank you for the consultation any questions please contact the wound care center. DNP note has been reviewed and discussed with Dr. Boland and the impression and plan of care has been directed as dictated.
[2020-06-18 11:18] LABS: Glucose,Whole Blood 114 mg/dL (75-99)
[2020-06-18] MEDS: DOCUSATE 100 MG CAP PO SCH (11:37)
[2020-06-18] MEDS: LOSARTAN 25 MG TAB PO SCH (11:37)
--- NOTE | 2020-06-18 12:12 | P.CNNES ---
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 The history was obtained from the patient's was at bedside. On 06/16/2020 the patient had a fall without any major injury, denies any head trauma or patient complaining of any pain. After the fall the patient could not get up. On 06/17/2020 the patient was sliding out of the chair and coming down to the floor and unable to get up. She stated that over the last couple days patient has been having more frequent falls but denies hitting his head or losing consciousness or any jerk in of any his extremities with these episodes. She said that he always had falls or would crawl on the floor but with command that he would get up but with these episodes one the he was asked to get up he would not. She also stated that over the last few days all his extremities were flailing in the air which is new. She also felt like he somewhat more confused than his baseline in the last couple days. He usually walks unassisted but shuffles at home. A cortisone he follows up with Dr. Bahena managing his Parkinson's and the last time he was seen by Dr. Jimenez was about 6 months ago. And she stated that he hasn't followed up appointment with his neurologist and the end of this month or the beginning of next month. He stated the patient has a cervical dystonia on the right and in the past there was a discussion of getting injections and Botox injection but was decided not to give him in jections. Today the patient feels like he is much better compared to yesterday. Per patient she stated that the patient is able to feed himself but he needs the assistance going to the bathroom. He is incontinent which is as chronic issue. Regarding mentation, sometimes he is aware of himself and sometimes he might know his and sometimes not. Otherwise he has more remote memory is intact. Patient is on Sinemet 50/200 mg 1 tablet twice a day. Patient is also on Aricept 10 mg daily as well as Seroquel 25 mg daily. His medication has been changed according to the and the last 2 years. Work-up in the hospital consisted of: Initial vitals: Blood pressure of 127/90, heart rate of 56, respiratory of 22, temperature of 98.8 Fahrenheit axillary pulse ox of 96% at room air CT of the head is reported as no suspicious acute intracranial process. EKG was reported as normal sinus rhythm. Nonspecific ST abnormality. Abnormal EKG. Chest x-ray was reported as no acute pulmonary process. Analysis shows nitrate was negative, leukocyte esterases small, urine white blood cell was 19, urine bacteria was rare. Review of Systems Review of systems Limited by the per positive and negative as per HPI. Past Medical History Past Medical History: Hyperlipidemia, Hypertension, Neurologic Disorder Additional Past Medical History / Comment(s): Parkinsons History of Any Multi-Drug Resistant Organisms: None Reported Past Surgical History: Cholecystectomy, Heart Catheterization, Heart Catheterization With Stent Past Anesthesia/Blood Transfusion Reactions: No Reported Reaction Date of Last Stent Placement:: unknown Past Psychological History: No Psychological Hx Reported Smoking Status: Never smoker Past Alcohol Use History: None Reported Past Drug Use History: None Reported - Past Family History Mother History Unknown: Yes Family Medical History: No Reported History Additional Family Medical History / Comment(s): old age Medications and Allergies Home Medications Medication Instructions Recorded Confirmed Type Aspirin 81 mg PO DAILY 05/29/17 06/17/20 History Carbidopa-Levodopa ER 50-200Mg 1 tab PO BID 05/29/17 06/17/20 History [Sinemet CR 50-200 mg] Dutasteride 0.5 mg PO HS 05/29/17 06/17/20 History Losartan [Cozaar] 25 mg PO DAILY@1200 05/29/17 06/17/20 History atenoloL [Atenolol] 25 mg PO HS 05/29/17 06/17/20 History Docusate [Colace] 100 mg PO DAILY@1200 06/17/20 06/17/20 History Donepezil [Aricept] 10 mg PO HS 06/17/20 06/17/20 History QUEtiapine [SEROquel] 25 mg PO HS 06/17/20 06/17/20 History Rosuvastatin [Crestor] 5 mg PO Q48H 06/17/20 06/17/20 History Allergies Allergy/AdvReac Type Severity Reaction Status Date / Time No Known Allergies Allergy Verified 06/17/20 13:32 Physical Examination - Vital Signs Vital Signs: Vital Signs Temp Pulse Pulse Pulse Resp BP BP 06/18/20 07:53 97.5 F L 59 L 20 142/69 06/18/20 02:20 97.6 F 51 L 18 130/51 06/17/20 20:00 98.0 F 56 L 18 107/77 06/17/20 16:35 16 06/17/20 16:31 97.1 F L 79 16 06/17/20 15:24 98.4 F 62 18 138/88 06/17/20 14:56 97.1 F L 81 16 06/17/20 11:49 98.8 F 56 L 22 127/90 BP Pulse Ox 06/18/20 07:53 96 06/18/20 02:20 97 06/17/20 20:00 96 06/17/20 16:35 06/17/20 16:31 150/59 96 06/17/20 15:24 96 06/17/20 14:56 150/59 97 06/17/20 11:49 96 Intake and Output 06/17/20 06/18/20 06/18/20 22:59 06:59 14:59 Other: # Voids 1 1 GENERAL: The patient is lying in bed and is not in acute distress. CHEST: The heart rate is regular rate rhythm. No murmurs to auscultation. LUNG: Clear to auscultation bilaterally no wheezing noted throughout. Not labored breathing. ABDOMEN/GI: Bowel sounds present in all 4 quadrants. No tenderness to palpation throughout. NEUROLOGICAL: Limited because of his condition. Higher mental function: The patient is awake oriented to self but no place or time. He stated it was 1992 for year. He was not able to name his or name objects upon showing him. Cranial nerves: The pupils are round, equal and reactive to light. Visual hughes could not assess because of his condition. Extraocular movement : Patient is able to track through the room and no nysgamus note. Could not assess facial sensation because of his condition. No facial weakness noted. Could not assess rest of cranial nerves because of his condition. Motor: Gait could not assess becuase of his condition. The strength is able to move all extremities above gravity. I felt he has increased tone throughout all extremities. . I felt the patient has some disconjugate movement of the lower extremities Cerebellum: Could not assess Sensation: Could not assess. Reflexes (right/left): 2+ throughout. Plantars are downgoing bilaterally. Results Liver function tests is AST of 33 and ALT of 8. Aguila virus PCR is nondetected TSH on 2019 was 1.470 which is normal. - Laboratory Findings CBC and BMP: 06/18/20 06:00 06/18/20 06:00 Abnormal Lab Findings: Abnormal Labs 06/17/20 06/17/20 06/17/20 12:38 12:38 12:38 RBC Hct Lymphocytes # 0.7 L Carbon Dioxide 35 H BUN 35 H Creatinine Glucose Total Bilirubin 1.5 H Total Protein Urine Protein 1+ H Urine Blood Moderate H Ur Leukocyte Esterase Small H Urine RBC >182 H Urine WBC 19 H Urine WBC Clumps Occasional H Urine Bacteria Rare H Hyaline Casts 18 H Urine Mucus Occasional H 06/18/20 06/18/20 06:00 06:00 RBC 4.09 L Hct 37.6 L Lymphocytes # 0.8 L Carbon Dioxide BUN 23 H Creatinine 0.55 L Glucose 70 L Total Bilirubin 2.0 H Total Protein 5.8 L Urine Protein Urine Blood Ur Leukocyte Esterase Urine RBC Urine WBC Urine WBC Clumps Urine Bacteria Hyaline Casts Urine Mucus Assessment and Plan Assessment: This is a 80 year-old gentleman with medical history of Parkinson's disease (diagnosed 5-years ago) and dementia for the last two years who presents to emergency department on 06/17/2020 for generalized weakness, falls. 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 I'll order vitamin B12, methylmalonic acid and folate levels Occupation therapy and physical therapy are consulted. Regarding the patient's Parkinson's disease he is on Sinemet ER 50 mg/200 one tablet twice a day I notified the that I don't think the patient has as seizure by the wanted to get an EEG to rule out any epileptiform or underlying seizure activity. She stated that she wants to hold off for now and if it is a condition worsens then that she is in agreement of getting a routine EEG. Regarding the patient's dyskinesia I notified her that it could be a medication effect (possibly Sinement), she wants to hold off for now and possibly re-get evaluated by Dr. Bahena illness his condition worsens. If possible please avoid any sedation such as Ativan which the can affect his mentation. Patient was on Seroquel 25 mg daily. Maybe consider increasing the Seroquel to 25 mg 1 tablet twice a day If the patient is having a Parkinson's with psychosis and then I would recommend Pimavanserin as outpatient. Regarding management of UTI will defer management to primary team. The plan was discussed with the patient's and nurse. Thank you for the consultation Jeremias Bonds MD Neuro-Hospitalist Time with Patient: Greater than 30
[2020-06-18 15:06] VITALS: BMI 21.7
[2020-06-18] MEDS: DONEPEZIL 10 MG TAB PO SCH (19:44)
[2020-06-18] MEDS: QUEtiapine 25 MG TAB PO SCH (19:44)
[2020-06-18] MEDS: FINASTERIDE 5 MG TAB PO SCH (19:44)
[2020-06-18] MEDS: atenoloL 25 MG TAB PO SCH (19:44)
[2020-06-19] MEDS: SODIUM CHLORIDE 0.9% 1,000 ML IV SCH (05:32)
--- NOTE | 2020-06-19 06:45 | XR ---
EXAMINATION TYPE: XR chest 1V DATE OF EXAM: 06/19/2020 CLINICAL HISTORY: Cough progress study. TECHNIQUE: Two AP portable frontal view of the chest are obtained. COMPARISON: Chest x-ray from 2 days earlier FINDINGS: Current exam is suboptimal as one image does not include right lung apex, second image is obscured by overlying chin. There is redemonstration of overlying edge artifact in the left lung. Chr onic parenchymal changes bilaterally are present with some faint areas of increased opacity bilateral ly. No pleural effusion or pneumothorax is seen. Cardiac silhouette size is stable and upper limits o f normal with slightly ectatic thoracic aorta. Osseous structures remain intact. IMPRESSION: Suboptimal study. Chronic parenchymal changes with faint multifocal acute infiltrates. Co rrelate for covid 19 infection. No significant change from most recent x-ray.
[2020-06-19 06:59] LABS: Basophils % (A) 1 %; Eosinophils # (A) 0.3 k/uL (0-0.7); Eosinophils % (A) 5 %; HCT 37.6 % (39.0-53.0); HGB 13.2 gm/dL (13.0-17.5); Lymphocytes # (A) 1.2 k/uL (1.0-4.8); Lymphocytes % (A) 19 %; MCH 31.6 pg (25.0-35.0); MCHC 35.1 g/dL (31.0-37.0); Mean Platelet Volume 7.1; Monocytes # (A) 0.5 k/uL (0-1.0); Monocytes % (A) 8 %; Neutrophils # (A) 4.1 k/uL (1.3-7.7); Neutrophils % (A) 66 %; Platelet Count 193 k/uL (150-450); RBC 4.17 m/uL (4.30-5.90); RDW 12.4 % (11.5-15.5); WBC 6.2 k/uL (3.8-10.6)
[2020-06-19 07:00] LABS: ALT 18 U/L (4-49); AST 36 U/L (17-59); African American GFR (CKD) >90 (>60 ml/min/1.73 sqM); Albumin 3.2 g/dL (3.5-5.0); Albumin/Globulin Ratio 1.5; Alkaline Phosphatase 70 U/L (38-126); Anion Gap 3 mmol/L; Blood Urea Nitrogen 17 mg/dL (9-20); Calcium 8.6 mg/dL (8.4-10.2); Carbon Dioxide 29 mmol/L (22-30); Chloride 105 mmol/L (98-107); Globulin 2.2 g/dL; Glucose 76 mg/dL (74-99); Magnesium 1.9 mg/dL (1.6-2.3); Non-African American GFR(CKD) >90 (>60 ml/min/1.73 sqM); Potassium 4.1 mmol/L (3.5-5.1); Sodium 137 mmol/L (137-145); Total Bilirubin 1.5 mg/dL (0.2-1.3); Total Protein 5.4 g/dL (6.3-8.2)
[2020-06-19] MEDS: ASPIRIN 81 MG PO SCH (08:52)
[2020-06-19] MEDS: DOCUSATE 100 MG CAP PO SCH (08:52)
[2020-06-19] MEDS: CARBIDOPA-LEVODOPA ER 50-200MG 1 EACH TABLET.ER PO SCH ×2 (08:52→21:26)
--- NOTE | 2020-06-19 11:06 | P.PN ---
Subjective Progress Note Date: 06/19/20 The patient was seen at bedside and the he stated that he is doing good. He had no complaints. Per the patient nurse he is more awake today and more responsive. She hasn't seen the any further episodes of the jerking of his arms or leg or any erratic the movement. Objective - Vital Signs Vital signs: Vital Signs Temp 97.3 F L 06/19/20 08:00 Pulse 56 L 06/19/20 08:00 Resp 18 06/19/20 08:00 BP 141/75 06/19/20 08:00 Pulse Ox 98 06/19/20 08:00 Intake & Output 06/18/20 06/19/20 06/19/20 18:59 06:59 18:59 Intake Total 750 100 Balance 750 100 Weight 61.235 kg Intake: Intake, IV Titration 750 Amount Sodium Chloride 0.9% 1, 750 000 ml @ 75 mls/hr IV . [id number] [facility] Rx#:[id number] Oral 100 Other: # Voids 3 2 1 - Exam GENERAL: The patient is lying in bed and is not in acute distress. NEUROLOGICAL: Limited because of his condition. Higher mental function: The patient is awake oriented to self and place. With options he correctly chose the current year. He stated it was May. Patient is following simple commands. His language is very limited. No neglect. Cranial nerves: The pupils are round, equal and reactive to light. Visual hughes could not assess because of his condition. Extraocular movement : Patient is able to track through the room and no nysgamus note. No facial weakness noted. Has neck is rotated at right side and has increase tone. Could not assess rest of cranial nerves because of his condition. Motor: Gait could not assess becuase of his condition. The strength is able to move all extremities above gravity. I felt there is an increased tone which is mild on the left elbow as well as the the right wrist and elbow. There is also pronounced increased tone at bilateral knees. There is a decreased bulk in the proximal bilateral lower extremities. She has some resting tremor of the right hand. Cerebellum: Could not assess Sensation: Could not assess. Reflexes (right/left): 3+ at right brachioradialis and bilateral patellar, ankles are 1+ bilaterally. Otherwise 2+. Plantars are downgoing bilaterally. - Labs CBC & Chem 7: 06/19/20 06:31 06/19/20 06:31 Labs: Abnormal Lab Results - Last 24 Hours (Table) 06/18/20 06/19/20 06/19/20 Range/Units 11:15 06:31 06:31 RBC 4.17 L (4.30-5.90) m/uL Hct 37.6 L (39.0-53.0) % Creatinine 0.59 L (0.66-1.25) mg/dL POC Glucose (mg/dL) 114 H (75-99) mg/dL Total Bilirubin 1.5 H (0.2-1.3) mg/dL Total Protein 5.4 L (6.3-8.2) g/dL Albumin 3.2 L (3.5-5.0) g/dL Microbiology - Last 24 Hours (Table) 06/17/20 12:38 Urine Culture - Final Urine,Voided Assessment and Plan Assessment: This is a 80 year-old gentleman with medical history of Parkinson's disease (diagnosed 5-years ago) and dementia for the last two years who presents to emergency department on 06/17/2020 for generalized weakness, falls. 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 vitamin B12: 635 (normal). Methylmalonic acid and folate levels are pending. Occupation therapy and physical therapy are consulted. Regarding the patient's Parkinson's disease he is on Sinemet ER 50 mg/200 one tablet twice a day. Yesterday I want to get an EEG because of the patient the altered mentation and adding think it was a seizure but I want to rule out any epileptiform discharges. The notified me that she wants to hold off for now. Regarding the patient's dyskinesia I notified her that it could be a medication effect (possibly Sinement). I notified the patient's regarding this and she wants to hold off adjusting any of the medication for now and she'll deferred to Dr. Bahena. If possible please avoid any sedation such as Ativan which the can affect his mentation. Patient was on Seroquel 25 mg daily. Maybe consider increasing the Seroquel to 25 mg 1 tablet twice a day If the patient is having a Parkinson's with psychosis and then I would recommend Pimavanserin as outpatient. In my opinion I think he'll benefit from Botox injection in the cervical region and possibly in the lower extremities. Also he might benefit from baclofen. Also on not sure if the patient had MRI of the cervical spine especially the he has increased tone in the upper extremities and brisk reflexes but I'll defer all this management to his neurologist as an outpatient. I think the patient will benefit from seeing a movement disorder specialist (such as Dr. Colon at [facility]). Regarding management of UTI will defer management to primary team. The plan was discussed with the patient's nurse. There is no neurology service over the weekend. Please Perfect Serve if needed. Dr. Brown will take over this coming-up Monday. Jeremias Bonds MD Neuro-Hospitalist Time with Patient: Less than 30
[2020-06-19] MEDS: LOSARTAN 25 MG TAB PO SCH (11:57)
[2020-06-19] MEDS ORDERED: QUEtiapine 25 MG TAB PO PRN (13:50)
--- NOTE | 2020-06-19 14:14 | CDI ---
Documentation Clarification Form Date: 06/19/2020 01:45:01 PM From: Lynnette Echavarria RN, CCDS Admit Date: 06/17/2020 02:30:00 PM Patient Name: Rancho Hopkins Visit Number: [id number] Discharge Date: ATTENTION: The Clinical Documentation Specialists (CDI) and [facility] Coding Staff appreciate your assistance in clarifying documentation. Please respond to the clarification below the line at the bottom and electronically sign. The CDI & [facility] Coding staff will review the response and follow-up if needed. Please note: Queries are made part of the Legal Health Record. If you have any questions, please contact the author of this message via ITS. Dr. Kingston Hoover Failure to thrive is documented in your H& P and subsequent progress notes. Please review clinical indication and further specify what this may indicate. History/Risk Factors: Parkinson's disease, Dementia Clinical Indicators: 80-year-old male present on 06/17 with complaints of fall, weakness, not eating for past 3 days. His appetite is poor. 06/17 Labs: BUN 35, CR 0.69 Total Bilirubin 1.5, 06/19 Labs Total protein 5.4, Albumin 3.2 Current BMI: 21.8 Insufficient energy intake: Yes Weight Loss: Yes, 16 Kg weight loss over 2 years Loss of subcutaneous fat: Yes, Stage II pressure ulcer on buttock Loss of muscle mass: Per nutritional physical findings: Mild temporal and clavicle muscle wasting Decreased hand remote sensing advisor strength: weakness Treatment: Ensure Enlive Once daily Dietary Consult: Yes Monitor supplement intake In your professional opinion, can you please clarify if these findings signify one of the following conditions? Malnutrition, unspecified (Last Revision: December 2018) MTDD
--- NOTE | 2020-06-19 14:16 | P.PN ---
Subjective Progress Note Date: 06/19/20 Principal diagnosis: Weakness Gait dysfunction Parkinson's disease Parkinsonian dementia History of prostate cancer followed by urology History of hyperlipidemia History of hypertension Failure to thrive Stage II pressure wound coccyx/sacral region This 80 male is resting comfortably in bed at this time, he does arouse to verbal command with light touch, he had his CT scan of his head which did not show acute changes, he has had a neurology consult for altered mental status change as his behaviors are not at his baseline, his recommendation is to stop Ativan PRN and add Seroquel BID, he has not had any increased restlessness, is more alert, eating and drinking, he has had a wound care consultation for a stage II pressure wound on his sacral region, he is in no acute distress and is not exhibiting behavioral disturbances at this time, he continues to have weakness and the plan is to have him transferred to a rehabilitation facility for PT/OT as the goal is to get him back to home to his house to be cared for by his and family. Objective - Vital Signs Vital signs: Vital Signs Temp 97.3 F L 06/19/20 08:00 Pulse 56 L 06/19/20 08:00 Resp 18 06/19/20 08:00 BP 141/75 06/19/20 08:00 Pulse Ox 98 06/19/20 08:00 Intake & Output 06/18/20 06/19/20 06/19/20 18:59 06:59 18:59 Intake Total 750 100 Balance 750 100 Weight 61.235 kg Intake: Intake, IV Titration 750 Amount Sodium Chloride 0.9% 1, 750 000 ml @ 75 mls/hr IV . [id number] [facility] Rx#:[id number] Oral 100 Other: # Voids 3 2 1 - Constitutional General appearance: Present: no acute distress, thin - EENT Ears: bilateral: normal - Neck Neck: Present: rigidity (right) Thyroid: bilateral: normal size - Respiratory Respiratory: bilateral: CTA - Cardiovascular Rhythm: regular Heart sounds: normal: S1, S2 - Gastrointestinal General gastrointestinal: Present: normal bowel sounds, soft - Musculoskeletal Musculoskeletal: Present: generalized weakness - Labs CBC & Chem 7: 06/19/20 06:31 06/19/20 06:31 Labs: Abnormal Lab Results - Last 24 Hours (Table) 01/08/21 01/08/21 Range/Units 06:31 06:31 RBC 4.17 L (4.30-5.90) m/uL Hct 37.6 L (39.0-53.0) % Creatinine 0.59 L (0.66-1.25) mg/dL Total Bilirubin 1.5 H (0.2-1.3) mg/dL Total Protein 5.4 L (6.3-8.2) g/dL Albumin 3.2 L (3.5-5.0) g/dL Microbiology - Last 24 Hours (Table) 06/17/20 12:38 Urine Culture - Final Urine,Voided - Imaging and Cardiology Chest x-ray: report reviewed Assessment and Plan Assessment: Weakness Gait dysfunction Parkinson's disease Parkinsonian dementia History of prostate cancer followed by urology History of hyperlipidemia History of hypertension Failure to thrive Stage II pressure wound sacral/coccyx (1) Weakness Narrative/Plan: Rule out cause for his weakness Physical therapy consider short-term rehabilitation at [facility] Current Visit: Yes Status: Acute Code(s): R53.1 - WEAKNESS SNOMED Code(s): 56662947 (2) Dementia Narrative/Plan: Neurology consultation and recommendation Current Visit: Yes Status: Acute Code(s): F03.90 - UNSPECIFIED DEMENTIA WITHOUT BEHAVIORAL DISTURBANCE SNOMED Code(s): 71157073 Plan: Continue medications as prescribed Discontinue fluids as he is eating and drinking Continue Neurology consult for recommendations and treatment plans, per recommendations discontinue Ativan, will increase Seroquel to BID if needed for increased agitation Continue Wound care consultation for recommendations of coccyx/sacral region stage II pressure wound Continue PT OT consultation for evaluation and treatment Plan to discharge to inpatient rehab for physical therapy
[2020-06-19] MEDS: ATORVASTATIN 10 MG TAB PO SCH (21:24)
[2020-06-19] MEDS: DONEPEZIL 10 MG TAB PO SCH (21:24)
[2020-06-19] MEDS: atenoloL 25 MG TAB PO SCH (21:24)
[2020-06-19] MEDS: QUEtiapine 25 MG TAB PO SCH (21:26)
[2020-06-19] MEDS: FINASTERIDE 5 MG TAB PO SCH (21:26)
[2020-06-20] MEDS: CARBIDOPA-LEVODOPA ER 50-200MG 1 EACH TABLET.ER PO SCH ×2 (09:28→22:23)
[2020-06-20] MEDS: ASPIRIN 81 MG PO SCH (09:28)
--- NOTE | 2020-06-20 09:57 | XR ---
EXAMINATION TYPE: XR chest 1V DATE OF EXAM: 06/20/2020 COMPARISON: 06/19/2020 HISTORY: Shortness of breath TECHNIQUE: Single frontal view of the chest is obtained. FINDINGS: Chronic rib deformities are seen. No sizable pneumothorax. Diffuse changes of COPD. There is a reflection along the left heart border which may be related to artifact. Infiltrates stable. Rig ht perihilar subsegmental consolidation. IMPRESSION: 1. COPD. Stable faint infiltrates.
[2020-06-20] MEDS: DOCUSATE 100 MG CAP PO SCH (11:58)
[2020-06-20] MEDS: LOSARTAN 25 MG TAB PO SCH (11:58)
[2020-06-20 13:08] LABS: Methylmalonic Acid 0.25 umol/L (<0.40)
[2020-06-20] MEDS: DONEPEZIL 10 MG TAB PO SCH (22:23)
[2020-06-20] MEDS: atenoloL 25 MG TAB PO SCH (22:23)
[2020-06-20] MEDS: FINASTERIDE 5 MG TAB PO SCH (22:23)
[2020-06-20] MEDS: QUEtiapine 25 MG TAB PO SCH (22:23)
--- NOTE | 2020-06-20 23:32 | P.PN ---
Subjective Progress Note Date: 06/20/20 Principal diagnosis: Recurrent falls Mr. Hopkins is a 80-year-old male with a past medical history of hypertension, hyperlipidemia, Parkinson's disease admitted to the hospital for recurrent falls generalized weakness and agitation over the past few days. Patient is a poor historian. As per his he has been having recurrent falls and that he was more confused for the past couple of days and so came into the hospital for further evaluation. Patient had a CAT scan of the head which was negative for acute intracranial process, chest x-ray negative for nitrates. On reviewing the patient's vitals temperature 97.1 heart rate 61 respiratory rate 18 blood pressu re 116/72/room air. On reviewing the from this morning. Active Medications Aspirin (Aspirin 81 Mg) 81 mg PO DAILY [facility] Last Admin: 06/20/20 09:28 Dose: 81 mg Documented by: Atenolol (Atenolol 25 Mg Tab) 25 mg PO [facility] Last Admin: 06/19/20 21:24 Dose: 25 mg Documented by: Atorvastatin Calcium (Atorvastatin 10 Mg Tab) 10 mg PO Q48H [facility] Last Admin: 06/19/20 21:24 Dose: 10 mg Documented by: Carbidopa/Levodopa (Carbidopa-Levodopa Er 50-200mg 1 Each Tablet.Er) 1 each PO BID [facility] Last Admin: 06/20/20 09:28 Dose: 1 each Documented by: Docusate Sodium (Docusate 100 Mg Cap) 100 mg PO DAILY@1200 [facility] Last Admin: 06/19/20 08:52 Dose: 100 mg Documented by: Donepezil HCl (Donepezil 10 Mg Tab) 10 mg PO [facility] Last Admin: 06/19/20 21:24 Dose: 10 mg Documented by: Finasteride (Finasteride 5 Mg Tab) 5 mg PO [facility] Last Admin: 06/19/20 21:26 Dose: 5 mg Documented by: Losartan Potassium (Losartan 25 Mg Tab) 25 mg PO DAILY@1200 [facility] Last Admin: 06/19/20 11:57 Dose: 25 mg Documented by: Naloxone HCl (Naloxone 0.4 Mg/Ml 1 Ml Vial) 0.2 mg IV Q2M PRN PRN Reason: Opioid Reversal Quetiapine Fumarate (Quetiapine 25 Mg Tab) 25 mg PO [facility] Last Admin: 06/19/20 21:26 Dose: 25 mg Documented by: Quetiapine Fumarate (Quetiapine 25 Mg Tab) 25 mg PO DAILY PRN PRN Reason: Agitation Objective - Vital Signs Vital signs: Vital Signs Temp 97.1 F L 06/20/20 07:59 Pulse 64 06/20/20 07:59 Resp 18 06/20/20 07:59 BP 116/72 06/20/20 07:59 Pulse Ox 96 06/20/20 07:59 Intake & Output 06/19/20 06/20/20 06/20/20 18:59 06:59 18:59 Intake Total 150 0 Balance 150 0 Intake: Oral 100 0 Other 50 Other: # Voids 1 1 1 - Exam PHYSICAL EXAMINATION: GENERAL: sleeping in bed , arousable, folows simple commands HEENT: No scleral icterus. No conjunctival pallor. Normocephalic, atraumatic. No pharyngeal erythema. No thyromegaly. CARDIOVASCULAR: S1 and S2 present. PULMONARY: Diminished at bases ABDOMEN: Soft, nontender, nondistended, normoactive bowel sounds. EXTREMITIES: No cyanosis, clubbing, or pedal edema. NEUROLOGICAL: No focal neurological deficits. SKIN: No rash - Labs CBC & Chem 7: 06/19/20 06:31 06/19/20 06:31 Assessment and Plan Assessment: ASSESSMENT Gait dysfunction Parkinson's dementia Parkinson's disease History of prostrate cancer Hypertension Hyperlipidemia Failure to thrive Stage II sacral decubitus ulcer PLAN: Patient has progression of his Parkinson's disease, neurology on board following the patient. PT OT consulted for possible inpatient rehab placement. For now continue with the current medication regimen further recommendations depending on the progress of the patient.
[2020-06-21 07:00] LABS: Basophils # (A) 0.1 k/uL (0-0.2); Basophils % (A) 1 %; Eosinophils # (A) 0.2 k/uL (0-0.7); Eosinophils % (A) 3 %; HCT 36.4 % (39.0-53.0); Lymphocytes # (A) 0.9 k/uL (1.0-4.8); Lymphocytes % (A) 17 %; MCH 31.9 pg (25.0-35.0); MCHC 35.8 g/dL (31.0-37.0); MCV 89.1 fL (80.0-100.0); Mean Platelet Volume 6.8; Monocytes # (A) 0.5 k/uL (0-1.0); Monocytes % (A) 9 %; Neutrophils # (A) 3.7 k/uL (1.3-7.7); Neutrophils % (A) 67 %; Platelet Count 198 k/uL (150-450); RBC 4.09 m/uL (4.30-5.90); RDW 12.4 % (11.5-15.5); WBC 5.6 k/uL (3.8-10.6)
[2020-06-21] MEDS: ASPIRIN 81 MG PO SCH (08:43)
[2020-06-21] MEDS: CARBIDOPA-LEVODOPA ER 50-200MG 1 EACH TABLET.ER PO SCH ×2 (08:43→20:11)
[2020-06-21 10:46] LABS: Anion Gap 4.9 mmol/L (4.00-12.00); BUN/Creat Ratio 28.57 Ratio (12.00-20.00); Calcium 8.5 mg/dL (8.7-10.3); Carbon Dioxide 32.1 mmol/L (21.6-31.8); Non-African American GFR(CKD) 89.8 (60.0-200.0); Potassium 4.2 mmol/L (3.5-5.5)
[2020-06-21] MEDS: DOCUSATE 100 MG CAP PO SCH (10:55)
[2020-06-21] MEDS: LOSARTAN 25 MG TAB PO SCH (10:55)
[2020-06-21] MEDS: QUEtiapine 25 MG TAB PO SCH (20:11)
[2020-06-21] MEDS: FINASTERIDE 5 MG TAB PO SCH (20:11)
[2020-06-21] MEDS: DONEPEZIL 10 MG TAB PO SCH (20:11)
[2020-06-21] MEDS: ATORVASTATIN 10 MG TAB PO SCH (20:12)
[2020-06-21] MEDS: atenoloL 25 MG TAB PO SCH (20:12)
--- NOTE | 2020-06-21 23:11 | P.PN ---
Subjective Progress Note Date: 06/21/20 Principal diagnosis: Recurrent falls Mr. Hopkins is a 80-year-old male with a past medical history of hypertension, hyperlipidemia, Parkinson's disease admitted to the hospital for recurrent falls generalized weakness and agitation over the past few days. Patient is a poor historian. As per his he has been having recurrent falls and that he was more confused for the past couple of days and so came into the hospital for further evaluation. Patient had a CAT scan of the head which was negative for acute intracranial process, chest x-ray negative. On 06/21/2020 -patient is seen and examined on the general medical floors. Patient is sleeping curled up in the bed trying to pick on the blanket. Review of systems could not be done as the patient is confused and has dementia. On reviewing the vitals patient's temperature 97.9, heart rate 72, respiratory rate 18, blood pressure 105/58 saturating at 98% on room air. Labs from this morning white count of 5.6, hemoglobin is 13, platelets 198. Sodium 140, potassium 4.2, chloride 103, bicarb 32, BUN 20, creatinine 0.7. Active Medications Aspirin (Aspirin 81 Mg) 81 mg PO DAILY [facility] Last Admin: 06/21/20 08:43 Dose: 81 mg Documented by: Atenolol (Atenolol 25 Mg Tab) 25 mg PO [facility] Last Admin: 06/21/20 20:12 Dose: 25 mg Documented by: Atorvastatin Calcium (Atorvastatin 10 Mg Tab) 10 mg PO Q48H [facility] Last Admin: 06/21/20 20:12 Dose: 10 mg Documented by: Carbidopa/Levodopa (Carbidopa-Levodopa Er 50-200mg 1 Each Tablet.Er) 1 each PO BID [facility] Last Admin: 06/21/20 20:11 Dose: 1 each Documented by: Docusate Sodium (Docusate 100 Mg Cap) 100 mg PO DAILY@1200 [facility] Last Admin: 06/21/20 10:55 Dose: 100 mg Documented by: Donepezil HCl (Donepezil 10 Mg Tab) 10 mg PO [facility] Last Admin: 06/21/20 20:11 Dose: 10 mg Documented by: Finasteride (Finasteride 5 Mg Tab) 5 mg PO [facility] Last Admin: 06/21/20 20:11 Dose: 5 mg Documented by: Losartan Potassium (Losartan 25 Mg Tab) 25 mg PO DAILY@1200 [facility] Last Admin: 06/21/20 10:55 Dose: 25 mg Documented by: Naloxone HCl (Naloxone 0.4 Mg/Ml 1 Ml Vial) 0.2 mg IV Q2M PRN PRN Reason: Opioid Reversal Quetiapine Fumarate (Quetiapine 25 Mg Tab) 25 mg PO HS [facility] Last Admin: 06/21/20 20:11 Dose: 25 mg Documented by: Quetiapine Fumarate (Quetiapine 25 Mg Tab) 25 mg PO DAILY PRN PRN Reason: Agitation Objective - Vital Signs Vital signs: Vital Signs Temp 97.9 F 06/21/20 07:53 Pulse 64 06/21/20 07:53 Resp 18 06/21/20 07:53 BP 105/58 06/21/20 07:53 Pulse Ox 97 06/21/20 07:53 Intake & Output 06/20/20 06/21/20 06/21/20 18:59 06:59 18:59 Intake Total 250 100 300 Balance 250 100 300 Intake: Oral 250 100 300 Other: # Voids 1 3 3 - Exam PHYSICAL EXAMINATION: GENERAL: sleeping in bed , arousable, follows simple commands HEENT: No scleral icterus. No conjunctival pallor. Normocephalic, atraumatic. CARDIOVASCULAR: S1 and S2 present. PULMONARY: Diminished at bases ABDOMEN: Soft, nontender, nondistended, normoactive bowel sounds. EXTREMITIES: No cyanosis, clubbing, or pedal edema. NEUROLOGICAL: No focal neurological deficits. Tremors . - Labs CBC & Chem 7: 06/21/20 06:17 06/21/20 06:17 Labs: Abnormal Lab Results - Last 24 Hours (Table) 06/21/20 06/21/20 Range/Units 06:17 06:17 RBC 4.09 L (4.30-5.90) m/uL Hct 36.4 L (39.0-53.0) % Lymphocytes # 0.9 L (1.0-4.8) k/uL Carbon Dioxide 32.1 H (21.6-31.8) mmol/L BUN/Creatinine Ratio 28.57 H (12.00-20.00) Ratio Calcium 8.5 L (8.7-10.3) mg/dL Assessment and Plan Assessment: ASSESSMENT Gait dysfunction Parkinson's dementia Parkinson's disease History of prostrate cancer Hypertension Hyperlipidemia Stage II sacral decubitus ulcer Failure to thrive PLAN: Patient has progression of his Parkinson's disease, neurology on board following the patient. PT OT consulted for possible inpatient rehab placement. For now continue with the current medication regimen further recommendations depending on the progress of the patient.
[2020-06-22] MEDS: CARBIDOPA-LEVODOPA ER 50-200MG 1 EACH TABLET.ER PO SCH (08:32)
[2020-06-22] MEDS: ASPIRIN 81 MG PO SCH (08:35)
[2020-06-22] MEDS: LOSARTAN 25 MG TAB PO SCH (13:36)
[2020-06-22] MEDS: DOCUSATE 100 MG CAP PO SCH (13:36)
--- NOTE | 2020-06-22 13:46 | P.DS ---
<Marcela Flowers - Last Filed: 06/22/20 13:41> Providers Expected date of discharge: 06/22/20 Hospital Course: Final diagnosis Gait dysfunction Parkinson's dementia Parkinson's disease History of prostrate cancer Hypertension Covid 19 ruled out, testing was negative Hyperlipidemia Stage II sacral decubitus ulcer Failure to thrive Discharge disposition Patient is being discharged in a stable condition with guarded prognosis to [facility] for continued PT/OT therapy. Patient will follow-up with Dr. Hoover in the outpatient setting upon discharge. Total time taken is greater than 35 minutes. Hospital course This is a 80-year-old male who was recently admitted with recurrent falls and generalized weakness and agitation and was being closely monitored. Patient had been living at home with who cares for him although patient has been having more recurrent falls with generalized weakness and increasing agitation and continued to worsen and was brought to the hospital. Patient does see Dr. Hoover in the outpatient setting and will follow-up upon discharge. Patient was seen and evaluated by physical therapy recommending subacute rehab for some strength and mobility. is looking into possibility of having more care at the home. Patient had a CAT scan of his head which was negative for any acute intracranial process and chest x-ray was negative. Patient did have Covid 19 testing which was negative. Currently no reports of chest pain, shortness of breath, or palpitations. Patient is afebrile. No reports of nausea or vomiting and patient is tolerating diet. Patient will be going to [facility] today. On exam vital signs are stable. Temp is 97.4F, pulse is 59, respirations are 15, blood pressure is 137/70, oxygen saturation is 98% on room air. Cardio S1, S2 are muffled. Respiratory system shows diminished breath sounds at the bases with no wheezing or rhonchi noted. Abdomen is soft and nontender. Nervous system shows diffuse weakness. Please refer to medication reconciliation sheet for a list of medications. Patient Condition at Discharge: Stable Plan - Discharge Summary Discharge Rx Participant: No New Discharge Prescriptions: New QUEtiapine [SEROquel] 25 mg PO DAILY PRN tab PRN Reason: Agitation Continue Carbidopa-Levodopa ER 50-200Mg [Sinemet CR 50-200 mg] 1 tab PO BID Dutasteride 0.5 mg PO HS Losartan [Cozaar] 25 mg PO DAILY@1200 atenoloL [Atenolol] 25 mg PO HS Aspirin 81 mg PO DAILY QUEtiapine [SEROquel] 25 mg PO HS Donepezil [Aricept] 10 mg PO HS Docusate [Colace] 100 mg PO DAILY@1200 Rosuvastatin [Crestor] 5 mg PO Q48H Discharge Medication List Aspirin 81 mg PO DAILY 05/29/17 [History] Carbidopa-Levodopa ER 50-200Mg [Sinemet CR 50-200 mg] 1 tab PO BID 05/29/17 [History] Dutasteride 0.5 mg PO HS 05/29/17 [History] Losartan [Cozaar] 25 mg PO DAILY@1200 05/29/17 [History] atenoloL [Atenolol] 25 mg PO HS 05/29/17 [History] Docusate [Colace] 100 mg PO DAILY@1200 06/17/20 [History] Donepezil [Aricept] 10 mg PO HS 06/17/20 [History] QUEtiapine [SEROquel] 25 mg PO HS 06/17/20 [History] Rosuvastatin [Crestor] 5 mg PO Q48H 06/17/20 [History] QUEtiapine [SEROquel] 25 mg PO DAILY PRN tab 06/22/20 [Rx] Follow up Appointment(s)/Referral(s): Kingston Hoover MD [STAFF PHYSICIAN] - 1 Week Activity/Diet/Wound Care/Special Instructions: Patient is going to [facility] Activity as tolerated Continue current diet Follow-up with primary care provider upon discharge Discharge Disposition: TRANSFER TO SNF/ECF <Nikki Jennings - Last Filed: 06/23/20 00:05> Providers Date of admission: 06/17/20 14:30 Attending physician: Kingston Hoover Consults: 06/17/20 16:30 Consult Physician Routine Consulting Provider: Neurology Coverage Consult Reason/Comments: parkinsons altered mental status Do you want consulting provider notified?: Yes Primary care physician: Stated None Hospital Course: I spoke with his at bed side and she is ok for him to be discharge to the facility. Nikki Jennings
[2020-06-22 14:15] VITALS: BP 114/66; PULSE 72; RESP 16; TEMP 97.6
--- NOTE | 2020-06-22 16:41 | P.PN ---
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
== END 2020-06-22 16:10 | DRG 57 ==
LOC: EC 11:39 → 5NMEDONC 14:30
PROVIDERS: ADMIT Family Medicine; ATTEND Family Medicine
DX: G20 Parkinson's disease (principal); E46 Unspecified protein-calorie malnutrition; F05 Delirium due to known physiological condition; N39.0 Urinary tract infection, site not specified; L89.322 Pressure ulcer of left buttock, stage 2; F02.80 Dementia in other diseases classified elsewhere, unspecified severity, without behavioral disturbance, psychotic disturbance, mood disturbance, and anxiety; R62.7 Adult failure to thrive; G24.09 Other drug induced dystonia; R26.9 Unspecified abnormalities of gait and mobility; E86.0 Dehydration; Z20.822 Contact with and (suspected) exposure to COVID-19; Z68.21 Body mass index [BMI] 21.0-21.9, adult; I10 Essential (primary) hypertension; E78.5 Hyperlipidemia, unspecified; R32 Unspecified urinary incontinence; R29.6 Repeated falls; T42.8X5A Adverse effect of antiparkinsonism drugs and other central muscle-tone depressants, initial encounter; R45.1 Restlessness and agitation; Z79.82 Long term (current) use of aspirin; Z79.899 Other long term (current) drug therapy; Z85.46 Personal history of malignant neoplasm of prostate; Z90.49 Acquired absence of other specified parts of digestive tract; Z95.5 Presence of coronary angioplasty implant and graft; Z71.3 Dietary counseling and surveillance
CPT/HCPCS: 36415; 70450; 71045; 71046; 80048; 80053; 81001; 82607; 82747; 83605; 83735; 83921; 84145; 84484; 85025; 85610; 85730; 87086; 87635; 93005; 96360; 96361; 99285

== ENCOUNTER 2020-12-19 08:33 | Emergency (ER) | payer MEDICARE, OTHER ==
[2020-12-19 08:40] LABS: Glucose,Whole Blood 83 mg/dL (75-99)
[2020-12-19] MEDS ORDERED: SODIUM CHLORIDE 0.9% 500 ML 500 ML IV STA (08:41)
[2020-12-19 08:43] VITALS: TEMP 97.3
--- NOTE | 2020-12-19 09:01 | ED ---
General Adult HPI - General Chief complaint: Recheck/Abnormal Lab/Rx Stated complaint: Congestion Time Seen by Provider: 12/19/20 08:35 Source: EMS, RN notes reviewed, old records reviewed Mode of arrival: EMS Limitations: altered mental status - History of Present Illness Initial comments: This is a 80-year-old male who presents emergency Department from a senior living with the staff stating that they thought he had stridor. EMS stated that all they heard him was groaning. Patient has had no fever difficulty breathing cough according to EMS is been no reported vomiting or diarrhea. Patient is unable to give any history there is no further history available because the patient has no family or caregiver with him. - Related Data Home Medications Medication Instructions Recorded Confirmed Aspirin 81 mg PO DAILY 05/29/17 06/17/20 Carbidopa-Levodopa ER 50-200Mg 1 tab PO BID 05/29/17 06/17/20 [Sinemet CR 50-200 mg] Dutasteride 0.5 mg PO HS 05/29/17 06/17/20 Losartan [Cozaar] 25 mg PO DAILY@1200 05/29/17 06/17/20 atenoloL [Atenolol] 25 mg PO HS 05/29/17 06/17/20 Docusate [Colace] 100 mg PO DAILY@1200 06/17/20 06/17/20 Donepezil [Aricept] 10 mg PO HS 06/17/20 06/17/20 QUEtiapine [SEROquel] 25 mg PO HS 06/17/20 06/17/20 Rosuvastatin [Crestor] 5 mg PO Q48H 06/17/20 06/17/20 Previous Rx's Medication Instructions Recorded QUEtiapine [SEROquel] 25 mg PO DAILY PRN tab 06/22/20 Allergies Allergy/AdvReac Type Severity Reaction Status Date / Time No Known Allergies Allergy Verified 12/19/20 08:45 Review of Systems ROS Statement: Those systems with pertinent positive or pertinent negative responses have been documented in the HPI. ROS Other: All systems not noted in ROS Statement are negative. Past Medical History Past Medical History: Hyperlipidemia, Hypertension, Neurologic Disorder Additional Past Medical History / Comment(s): Parkinsons History of Any Multi-Drug Resistant Organisms: None Reported Past Surgical History: Cholecystectomy, Heart Catheterization, Heart Catheterization With Stent Past Anesthesia/Blood Transfusion Reactions: No Reported Reaction Date of Last Stent Placement:: unknown Past Psychological History: No Psychological Hx Reported Smoking Status: Never smoker Past Alcohol Use History: None Reported Past Drug Use History: None Reported - Past Family History Mother History Unknown: Yes Family Medical History: No Reported History Additional Family Medical History / Comment(s): old age General Exam - General Exam Comments Initial Comments: GENERAL: Patient is well-developed and well-nourished. Patient is nontoxic and well- hydrated and is in mild distress. Patient has a very mild frontal ENT: Neck is soft and supple. No significant lymphadenopathy is noted. Oropharynx is clear. Moist mucous membranes. Neck has full range of motion without eliciting any pain. EYES: The sclera were anicteric and conjunctiva were pink and moist. Extraocular movements were intact and pupils were equal round and reactive to light. Eyelids were unremarkable. PULMONARY: Unlabored respirations. Good breath sounds bilaterally. No audible rales rhonchi or wheezing was noted. CARDIOVASCULAR: There is a regular rate and rhythm without any murmurs gallops or rubs. ABDOMEN: Patient groans when I palpate the abdomen anywhere. SKIN: Skin is clear with no lesions or rashes and otherwise unremarkable. NEUROLOGIC: Patient is alert and oriented 0. Cranial nerves II through XII are grossly intact. MUSCULOSKELETAL: Normal extremities with adequate strength and full range of motion. LYMPHATICS: No significant lymphadenopathy is noted PSYCHIATRIC: Unable to assess Limitations: physical limitation Course Vital Signs 12/19/20 12/19/20 08:34 09:13 Temperature 97.3 F L Pulse Rate 64 Respiratory 18 18 Rate Blood Pressure 109/72 O2 Sat by Pulse 96 Oximetry Medical Decision Making - Medical Decision Making Chest x-ray shows no acute abnormality. KUB shows constipation but no other abnormality. Patient was in no distress vitals were all stable throughout his ED stay. - Lab Data Result diagrams: 12/19/20 09:06 12/19/20 09:06 Lab Results 12/19/20 12/19/20 12/19/20 Range/Units 08:38 09:01 09:06 WBC 6.8 (3.8-10.6) k/uL RBC 4.45 (4.30-5.90) m/uL Hgb 13.8 (13.0-17.5) gm/dL Hct 39.7 (39.0-53.0) % MCV 89.3 (80.0-100.0) fL MCH 31.1 (25.0-35.0) pg MCHC 34.8 (31.0-37.0) g/dL RDW 12.4 (11.5-15.5) % Plt Count 256 (150-450) k/uL MPV 6.8 Neutrophils % 68 % Lymphocytes % 18 % Monocytes % 7 % Eosinophils % 3 % Basophils % 1 % Neutrophils # 4.7 (1.3-7.7) k/uL Lymphocytes # 1.2 (1.0-4.8) k/uL Monocytes # 0.5 (0-1.0) k/uL Eosinophils # 0.2 (0-0.7) k/uL Basophils # 0.1 (0-0.2) k/uL Sodium (137-145) mmol/L Potassium (3.5-5.1) mmol/L Chloride (98-107) mmol/L Carbon Dioxide (22-30) mmol/L Anion Gap mmol/L BUN (9-20) mg/dL Creatinine (0.66-1.25) mg/dL Est GFR (CKD-EPI)AfAm (>60 ml/min/1.73 sqM) Est GFR (CKD-EPI)NonAf (>60 ml/min/1.73 sqM) Glucose (74-99) mg/dL POC Glucose (mg/dL) 83 (75-99) mg/dL POC Glu Contracts Representative ID Darnell Oliva Plasma Lactic Acid [place] (0.7-2.0) mmol/L Calcium (8.4-10.2) mg/dL Total Bilirubin (0.2-1.3) mg/dL AST (17-59) U/L ALT (4-49) U/L Alkaline Phosphatase (38-126) U/L Troponin I (0.000-0.034) ng/mL Total Protein (6.3-8.2) g/dL Albumin (3.5-5.0) g/dL Amylase (30-110) U/L Lipase (23-300) U/L Urine Color Yellow Urine Appearance Clear (Clear) Urine pH 7.0 (5.0-8.0) Ur Specific [place] 1.014 (1.001-1.035) Urine Protein Negative (Negative) Urine Glucose (UA) Negative (Negative) Urine Ketones Negative (Negative) Urine Blood Negative (Negative) Urine Nitrite Negative (Negative) Urine Bilirubin Negative (Negative) Urine Urobilinogen <2.0 (<2.0) mg/dL Ur Leukocyte Esterase Negative (Negative) 12/19/20 12/19/20 12/19/20 Range/Units 09:06 09:06 09:06 WBC (3.8-10.6) k/uL RBC (4.30-5.90) m/uL Hgb (13.0-17.5) gm/dL Hct (39.0-53.0) % MCV (80.0-100.0) fL MCH (25.0-35.0) pg MCHC (31.0-37.0) g/dL RDW (11.5-15.5) % Plt Count (150-450) k/uL MPV Neutrophils % % Lymphocytes % % Monocytes % % Eosinophils % % Basophils % % Neutrophils # (1.3-7.7) k/uL Lymphocytes # (1.0-4.8) k/uL Monocytes # (0-1.0) k/uL Eosinophils # (0-0.7) k/uL Basophils # (0-0.2) k/uL Sodium 144 (137-145) mmol/L Potassium 4.5 (3.5-5.1) mmol/L Chloride 104 (98-107) mmol/L Carbon Dioxide 35 H (22-30) mmol/L Anion Gap 5 mmol/L BUN 28 H (9-20) mg/dL Creatinine 0.60 L (0.66-1.25) mg/dL Est GFR (CKD-EPI)AfAm >90 (>60 ml/min/1.73 sqM) Est GFR (CKD-EPI)NonAf >90 (>60 ml/min/1.73 sqM) Glucose 95 (74-99) mg/dL POC Glucose (mg/dL) (75-99) mg/dL POC Glu Contracts Representative ID Plasma Lactic Acid [place] 1.2 (0.7-2.0) mmol/L Calcium 9.7 (8.4-10.2) mg/dL Total Bilirubin 0.9 (0.2-1.3) mg/dL AST 24 (17-59) U/L ALT 20 (4-49) U/L Alkaline Phosphatase 77 (38-126) U/L Troponin I <0.012 (0.000-0.034) ng/mL Total Protein 6.0 L (6.3-8.2) g/dL Albumin 3.7 (3.5-5.0) g/dL Amylase 40 (30-110) U/L Lipase 38 (23-300) U/L Urine Color Urine Appearance (Clear) Urine pH (5.0-8.0) Ur Specific [place] (1.001-1.035) Urine Protein (Negative) Urine Glucose (UA) (Negative) Urine Ketones (Negative) Urine Blood (Negative) Urine Nitrite (Negative) Urine Bilirubin (Negative) Urine Urobilinogen (<2.0) mg/dL Ur Leukocyte Esterase (Negative) Disposition Clinical Impression: Dehydration, Constipation Disposition: HOME SELF-CARE Condition: Good Instructions (If sedation given, give patient instructions): Constipation (ED) Is patient prescribed a controlled substance at d/c from ED?: No Referrals: Donaldo Lau DO [Primary Care Provider] - 1-2 days Time of Disposition: 10:59
[2020-12-19 09:07] LABS: Appearance,Urine Clear (Clear); Bilirubin,Urine Negative (Negative); Blood,Urine Negative (Negative); Color,Urine Yellow; Glucose,Urine (UA) Negative (Negative); Ketones,Urine Negative (Negative); Leukocyte Esterase,Urine Negative (Negative); Nitrite,Urine Negative (Negative); Protein,Urine Negative (Negative); Specific Gravity,Urine 1.014 (1.001-1.035); Urobilinogen,Urine <2.0 mg/dL (<2.0)
[2020-12-19 09:16] LABS: Basophils # (A) 0.1 k/uL (0-0.2); Basophils % (A) 1 %; Eosinophils # (A) 0.2 k/uL (0-0.7); Eosinophils % (A) 3 %; HCT 39.7 % (39.0-53.0); HGB 13.8 gm/dL (13.0-17.5); Lymphocytes # (A) 1.2 k/uL (1.0-4.8); Lymphocytes % (A) 18 %; MCH 31.1 pg (25.0-35.0); MCHC 34.8 g/dL (31.0-37.0); MCV 89.3 fL (80.0-100.0); Mean Platelet Volume 6.8; Monocytes # (A) 0.5 k/uL (0-1.0); Monocytes % (A) 7 %; Neutrophils # (A) 4.7 k/uL (1.3-7.7); Neutrophils % (A) 68 %; Platelet Count 256 k/uL (150-450); RBC 4.45 m/uL (4.30-5.90); RDW 12.4 % (11.5-15.5); WBC 6.8 k/uL (3.8-10.6)
[2020-12-19 09:26] LABS: ALT 20 U/L (4-49); AST 24 U/L (17-59); African American GFR (CKD) >90 (>60 ml/min/1.73 sqM); Albumin 3.7 g/dL (3.5-5.0); Alkaline Phosphatase 77 U/L (38-126); Amylase 40 U/L (30-110); Anion Gap 5 mmol/L; Blood Urea Nitrogen 28 mg/dL (9-20); Calcium 9.7 mg/dL (8.4-10.2); Carbon Dioxide 35 mmol/L (22-30); Chloride 104 mmol/L (98-107); Glucose 95 mg/dL (74-99); Lipase 38 U/L (23-300); Non-African American GFR(CKD) >90 (>60 ml/min/1.73 sqM); Potassium 4.5 mmol/L (3.5-5.1); Sodium 144 mmol/L (137-145); Total Bilirubin 0.9 mg/dL (0.2-1.3)
--- NOTE | 2020-12-19 10:32 | XR ---
EXAMINATION TYPE: XR chest 2V DATE OF EXAM: 12/19/2020 COMPARISON: Chest x-ray 06/20/2020 HISTORY: Abdominal pain, wheezing, abnormal chest x-ray TECHNIQUE: Frontal and lateral views of the chest are obtained. FINDINGS: There is no focal air space opacity, pleural effusion, or pneumothorax seen. The cardiac silhouette size is within normal limits. The osseous structures are stable, multiple old fractures are present, there is associated pleural thickening suspected, prominent lung volumes may be indicati ve of underlying COPD, patient is rotated and the aorta is dense. IMPRESSION: No acute cardiopulmonary process.
--- NOTE | 2020-12-19 10:34 | XR ---
KUB HISTORY: Abdominal pain Frontal KUB and 2 images There is some retained fecal debris present throughout the distribution of the colon. There is no lynsey dent pneumoperitoneum or bowel obstruction. Patient is rotated, there is likely scoliotic curvature t o the spine, degenerative disc changes are present. Calcifications are suspected in the left upper qu adrant possibly vascular. IMPRESSION: Nonspecific findings.
[2020-12-19 11:40] VITALS: BP 137/80; PULSE 83; RESP 20
== END 2020-12-19 13:04 | disposition home or self-care (01) ==
LOC: EC 08:33
DX: E86.0 Dehydration (principal); K59.00 Constipation, unspecified; R09.89 Other specified symptoms and signs involving the circulatory and respiratory systems; I10 Essential (primary) hypertension; E78.5 Hyperlipidemia, unspecified; Z79.82 Long term (current) use of aspirin
CPT/HCPCS: 36415; 71046; 74018; 80053; 81003; 82150; 83605; 83690; 84484; 85025; 99284

== ENCOUNTER 2020-12-20 04:57 | Emergency (ER) | payer MEDICARE, OTHER ==
[2020-12-20] MEDS ORDERED: SODIUM CHLORIDE 0.9% 1,000 ML IV STA (05:00)
--- NOTE | 2020-12-20 05:14 | ED ---
Recheck HPI - General Chief Complaint: Recheck/Abnormal Lab/Rx Stated Complaint: JIGNESH Time Seen by Provider: 12/20/20 04:59 Source: patient, EMS, RN notes reviewed, old records reviewed Mode of arrival: EMS Limitations: altered mental status, physical limitation - History of Present Illness Initial Comments: This is a 80-year-old male to the ER for evaluation patient presents today for evaluation regards to low pulse ox. Patient's pulse ox is normal upon arrival. Patient is a poor story and unable to obtain history. History obtained by EMS patient's transfer paperwork. Complaint: wound re-check (Low pulse ox) -: unknown Returns Today for: other (Low pulse ox) Symptoms Since Prior Visit: no new symptoms Context: other (none) Associated Symptoms: none Treatments Prior to Arrival: other (none) - Related Data Home Medications Medication Instructions Recorded Confirmed Aspirin 81 mg PO DAILY 05/29/17 06/17/20 Carbidopa-Levodopa ER 50-200Mg 1 tab PO BID 05/29/17 06/17/20 [Sinemet CR 50-200 mg] Dutasteride 0.5 mg PO HS 05/29/17 06/17/20 Losartan [Cozaar] 25 mg PO DAILY@1200 05/29/17 06/17/20 atenoloL [Atenolol] 25 mg PO HS 05/29/17 06/17/20 Docusate [Colace] 100 mg PO DAILY@1200 06/17/20 06/17/20 Donepezil [Aricept] 10 mg PO HS 06/17/20 06/17/20 QUEtiapine [SEROquel] 25 mg PO HS 06/17/20 06/17/20 Rosuvastatin [Crestor] 5 mg PO Q48H 06/17/20 06/17/20 Previous Rx's Medication Instructions Recorded QUEtiapine [SEROquel] 25 mg PO DAILY PRN tab 06/22/20 Allergies Allergy/AdvReac Type Severity Reaction Status Date / Time No Known Allergies Allergy Verified 12/20/20 05:02 Review of Systems ROS Statement: Those systems with pertinent positive or pertinent negative responses have been documented in the HPI. ROS Other: All systems not noted in ROS Statement are negative. Past Medical History Past Medical History: Hyperlipidemia, Hypertension, Memory Impairment, Neurologic Disorder Additional Past Medical History / Comment(s): Parkinsons History of Any Multi-Drug Resistant Organisms: None Reported Past Surgical History: Cholecystectomy, Heart Catheterization, Heart Catheterization With Stent Past Anesthesia/Blood Transfusion Reactions: No Reported Reaction Date of Last Stent Placement:: unknown Past Psychological History: No Psychological Hx Reported Smoking Status: Never smoker Past Alcohol Use History: None Reported Past Drug Use History: None Reported - Past Family History Mother History Unknown: Yes Family Medical History: No Reported History Additional Family Medical History / Comment(s): old age General Exam Limitations: altered mental status, physical limitation General appearance: alert, in no apparent distress Head exam: Present: atraumatic, normocephalic, normal inspection Eye exam: Present: normal appearance, PERRL, EOMI. Absent: scleral icterus, conjunctival injection, periorbital swelling ENT exam: Present: normal exam, mucous membranes moist Neck exam: Present: normal inspection. Absent: tenderness, meningismus, lymphadenopathy Respiratory exam: Present: normal lung sounds bilaterally. Absent: respiratory distress, wheezes, rales, rhonchi, stridor Cardiovascular Exam: Present: regular rate, normal rhythm, normal heart sounds. Absent: systolic murmur, diastolic murmur, rubs, gallop, clicks GI/Abdominal exam: Present: soft, normal bowel sounds. Absent: distended, tenderness, guarding, rebound, rigid Extremities exam: Present: normal inspection, full ROM, normal capillary refill. Absent: tenderness, pedal edema, joint swelling, calf tenderness Back exam: Present: normal inspection Neurological exam: Present: alert, oriented X3, CN II-XII intact Psychiatric exam: Present: normal affect, normal mood Skin exam: Present: warm, dry, intact, normal color. Absent: rash Course Vital Signs 12/20/20 12/20/20 12/20/20 04:58 05:03 05:13 Temperature 97.5 F L Pulse Rate 80 68 Respiratory 16 18 16 Rate Blood Pressure 114/67 118/88 O2 Sat by Pulse 95 97 Oximetry 12/20/20 05:20 Temperature Pulse Rate 78 Respiratory 16 Rate Blood Pressure O2 Sat by Pulse 97 Oximetry - Reevaluation(s) Reevaluation #1: 12/20/20 05:25 Medical record is reviewed Reevaluation #2: 12/20/20 05:25 Patient's pulse ox remains normal here in the ER Reevaluation #3: 12/20/20 05:25 ER visit from yesterday is reviewed Medical Decision Making - Medical Decision Making 80 male DF for evaluation patient can be discharged home as he has normal pulse oxygenation here in the ER Disposition Clinical Impression: Weakness, Dementia Disposition: HOME SELF-CARE Condition: Fair Instructions (If sedation given, give patient instructions): Weakness (ED) Is patient prescribed a controlled substance at d/c from ED?: No Referrals: Donaldo Lau DO [Primary Care Provider] - 1-2 days
[2020-12-20 06:37] VITALS: BP 126/77; PULSE 69; RESP 18; TEMP 98.9
== END 2020-12-20 07:14 | disposition home or self-care (01) ==
LOC: EC 04:57
DX: R53.1 Weakness (principal); G20 Parkinson's disease; F02.80 Dementia in other diseases classified elsewhere, unspecified severity, without behavioral disturbance, psychotic disturbance, mood disturbance, and anxiety; I10 Essential (primary) hypertension; E78.5 Hyperlipidemia, unspecified; Z79.82 Long term (current) use of aspirin; Z79.899 Other long term (current) drug therapy
CPT/HCPCS: 93005; 99284